=== PATIENT | male | born 1985 | race Caucasian/White ===

== ENCOUNTER 2023-08-16 07:20 | Outpatient (OUT) | payer OTHER, SELFPAY | END 2023-08-16 07:21 | disposition home or self-care (01) | LOC: SLEEP 07:20 | PROVIDERS: PCP Nurse Practitioner Family; Visit Provider Nurse Practitioner Family | DX: G47.30 Sleep apnea, unspecified (principal); G47.33 Obstructive sleep apnea (adult) (pediatric) | CPT/HCPCS: 95810 ==

== ENCOUNTER 2023-09-08 19:53 | Outpatient (OUT) | payer OTHER, SELFPAY ==
--- OUTSIDE RECORDS SUMMARY | 2023-09-08 19:56 | XMS_ITS | CCD ---
Author Name Unknown Address [address] [place] [address] Organization [facility] Care Team Providers Care [employer]yer [employer] Name Role Phone FLORENCE MOON Primary Care Physician [phone] INES RAMIREZ Admitting Unavailable REQUEST, NONE LISTED Primary Care Unavaila FLORENTINO Dominguez Consulting Unavailable BENJAMIN ., INES Attending Unavailable BENJAMIN ., INES Consulting Unavailable REQUEST, NONE LISTED Primary Care Unavaila amilcar Horton, INES Attending Unavailable BENJAMIN Horton, INES Admitting Unavailable GURU DIXON Consulting Unavailable BENJAMIN Horton, INES Consulting Unavailable SHAWNA CALDERON Consulting Unavailable REQUEST, NONE LISTED Primary Care UnavailIRENA Ayala Attending Unavailable MURALI .CHIDI Consulting UnavailIRENA Lucas Admitting Unavailable MARSHA LOPEZ Consulting Unavailable MAYO FLORES Admitting Unavailable MAYO FLORES Attending Unavailable Florence Moon Admitting Unavailab le Florence Moon Attending Unavailab MEÑO Nicolas Admitting Unavailable MEÑO BOWLES Attending Unavailable MAYO FLORES Admitting Unavailable MAYO FLORES Attending Unavailable JUSTINA MASON Admitting Unavail able JUSTINA MASON Attending Unavail able Florence Moon Primary Care Physician [phone] Julián Lay Attending Unavailab Julián [place] Admitting Unavailab Lionel Reinoso Primary Care Unavailable Allergies Allergy Classification Reported Allergen(s) Allergy Type Date of Onset Reaction(s) Facility (1 source) No Known Medication Allergies; Translations: [No Known Medication Allergies] Propensity to adverse reactions (disorder) [facility] Repository Medications Current Medications Medication Drug Class(es) Dates Sig (Normalized) Sig (Original) busPIRone hydrochloride 30 mg oral tablet (5 sources) Start: 01-05-2018 take 1 tablet by mouth twice daily busPIRone 30 mg oral tablet 30 mg = 1 tab(s), Oral, BID, Refills(s) 0 Start Date: 01/05/18 Status: Ordered sertraline 100 mg oral tablet (5 sources) Serotonin Reuptake Inhibitor Start: 01-05-2018 take 1 tablet by mouth once daily sertraline 100 mg oral tablet 100 mg = 1 tab(s), Oral, Daily, Refills(s) 0 Start Date: 01/05/18 Status: Ordered Completed/Discontinued Medications Medication Drug Class(es) Dates Sig (Normalized) Sig (Original) lamoTRIgine 25 mg oral tablet (5 sources) Mood Stabilizer, Anti-epileptic Agent Start: 01-05-2018 take 2 tablets by mouth once daily lamotrigine 25 mg oral tablet 50 mg = 2 tab(s), Oral, Bedtime, take 1 tablet by mouth EVERY NIGHT FOR 14 DAYS THEN 2 TABS EVERY NIGHT Start Date: 01/05/18 Status: Ordered Problems Active Problems Problem Classification Problem Date Documented Da te Episodic/Chronic E Codes: Natural/environment (1 source) Other and unspecified overexertion or strenuous movements or postures, initial encounter; Translations: [OTH AND UNS OVREXRT/STRN MVMT/POS INT] Onset: 10-29-2022 Episodic Menopausal disorders (1 source) Hormone replacement therapy; Translations: [HORMONE REPLACEMENT THERAPY] Onset: 10-29-2022 Episodic Miscellaneous mental health disorders (1 source) Somatization disorder; Translations: [SOMATIZATION DISORDER] Onset: 03-20-2022 Chronic Mood disorders (5 sources) Depression 01-05-2018 Chronic Other aftercare (1 source) Other care home (current) drug therapy; Translations: [OTH PENITENTIARY CURRENT DRUG THERAPY] Onset: 10-29-2022 Episodic Other connective tissue disease (1 source) Other muscle spasm; Translations: [OTHER MUSCLE SPASM] Onset: 10-29-2022 Episodic Pneumonia (except that caused by tuberculosis or sexually transmitted disease) (1 source) Bronchopneumonia, unspecified organism; Translations: [BRONCHOPNEUMONIA UNS ORGANISM] Onset: 10-27-2022 Episodic Sprains and strains (1 source) Strain of muscle, fascia and tendon of lower back, initial encounter; Translations: [STRAIN MUSC FASC TENDON LW BACK INT] Onset: 10-29-2022 Episodic Unclassified (2 sources) LOW BACK PAIN, UNSPECIFIED; Translations: [LOW BACK PAIN, UNSPECIFIED] Onset: 10-29-2022 Unclassified (2 sources) COUGH, UNSPECIFIED; Translations: [COUGH, UNSPECIFIED] Onset: 10-27-2022 Unclassified (1 source) CONTACT W/AND (SUSP) EXPOS COVID-19; Translations: [CONTACT W/AND (SUSP) EXPOS COVID-19] Onset: 10-27-2022 Past or Other Problems Problem Classification Problem Date Documented Da te Episodic/Chronic Residual codes; unclassified (4 sources) Altered mental status, unspecified; Translations: [ALTERED MENTAL STATUS UNSPECIFIED] Onset: 03-18-2022 Episodic Unclassified (5 sources) Assessment for suicidality 01-05-2018 Unclassified (1 source) LOW BACK PAIN, UNSPECIFIED; Translations: [LOW BACK PAIN, UNSPECIFIED] Onset: 10-27-2022 Unclassified (1 source) COUGH, UNSPECIFIED; Translations: [COUGH, UNSPECIFIED] Onset: 10-25-2022 Results Test Name Value Interpretation Reference Range Facility CHEMISTRYOrdered By: SYSTEM SYSTEM on 08-11-2023 Albumin [Mass/Vol] 4.3 g/dL Normal 3.3 - 5.0 gm/dL [facility] Albumin/Globulin [Mass ratio] 2.0 {ratio} Normal 1.1 - 2.2 [facility] Alk Phos 103 [iU]/d High 21 - 98 Int._Unit/L [facility] ALT 56 [iU]/d High 6 - 46 Int._Unit/L [facility] Anion gap [Moles/Vol] 12 mmol/L Normal 6 - 16 mEq/L [facility] AST 31 [iU]/d Normal 5 - 43 Int._Unit/L [facility] Bili Total 0.9 mg/dL Normal 0.0 - 1.1 mg/dL [facility] Calcium [Mass/Vol] 9.3 mg/dL Normal 8.9 - 11. 1 mg/dL [facility] Chloride [Moles/Vol] 103 mmol/L Normal 101 - 1 11 mmol/L [facility] Cholesterol [Mass/Vol] 153 mg/dL Normal 120 - 200 mg/dL [facility] Cholesterol in HDL [Mass/Vol] 44 mg/dL Invalid Interpretation Code [facility] Comment on above: Result Comment: '>= 60 LOW RISK' '<= 40 HIGH RISK' Cholesterol in LDL [Mass/Vol] 78 mg/dL Normal <=129mg/dL [facility] Cholesterol in VLDL [Mass/Vol] 48 mg/dL High 7 - 40 mg/dL [facility] CO2 [Moles/Vol] 29 mmol/L Normal 21 - 31 mmol/L [facility] Creatinine [Mass/Vol] 1.0 mg/dL Normal 0.5 - 1.3 mg/dL [facility] eGFR 100 mL/min/1.73 m2 Normal >=59mL/mi n/1. 73 m2 [facility] Globulin (S) [Mass/Vol] 2.2 g/dL Normal 1.4 - 4.0 gm/dL [facility] Glucose [Mass/Vol] 78 mg/dL Normal 55 - 199 mg/dL [facility] Potassium [Moles/Vol] 4.4 mmol/L Normal 3.5 - 5.3 mmol/L [facility] Protein [Mass/Vol] 6.5 g/dL Normal 6.0 - 7.8 gm/dL [facility] Sodium [Moles/Vol] 140 mmol/L Normal 135 - 145 mmol/L [facility] Triglyceride [Mass/Vol] 240 mg/dL High <=149mg/dL [facility] TSH Qn 3.07 m[IU]/L Normal 0.34 - 5.60 mcIU/mL [facility] Urea nitrogen [Mass/Vol] 12 mg/dL Normal 5 - 21 mg/dL [facility] Urea nitrogen/Creatinine [Mass ratio] 12 mg/mg Normal 10 - 20 [facility] Lipid Panelon 02-01-2023 Cholesterol [Mass/Vol] 149 mg/dL Normal 120-200 [facility] Comment on above: Performed By: #### 1 [id number], [id number] #### [facility] [address] [place] [address] Cholesterol in HDL [Mass/Vol] 40 mg/dL Invalid Interpretation Code [facility] Comment on above: Result Comment: HDL > or equal to 60 mg/dL: Low cardiovascular risk HDL < 40 mg/dL : High cardiovascular risk Performed By: #### 1 [id number], [id number] #### [facility] [address] [place] [address] Cholesterol in LDL [Mass/Vol] 79 mg/dL Normal <=129 [facility] Comment on above: Performed By: #### 1 [id number], [id number] #### [facility] [address] [place] [address] Cholesterol in VLDL [Mass/Vol] 47 mg/dL High 7-40 [facility] Comment on above: Performed By: #### 1 [id number], [id number] #### [facility] [address] [place] [address] Triglyceride [Mass/Vol] 235 mg/dL High <=149 [facility] Comment on above: Performed By: #### 1 [id number], [id number] #### [facility] [address] [place] [address] Physician Orderon 02-01-2023 Physician Order [id number]# [id number]:127 Normal [facility] T4 & TSHon 02-01-2023 T4 [Mass/Vol] 9.1 microgram/dL Normal 4.6-9.1 [facility] Comment on above: Performed By: #### 1 [id number], [id number] #### [facility] [address] [place] [address] TSH Qn 1.73 m[IU]/L Normal 0.34-5.60 [facility] Comment on above: Performed By: #### 1 [id number], [id number] #### [facility] [address] [place] [address] Coding Summary.on 11-07-2022 Coding Summary. CD:[id number] W w+PGhlYWQ+PH7HGZUjS82 fiRYsxK1kL8UGLApAWfwm CPNQCWqBVzEnqjFkIB2xa XNjZXJu IC8+VR9xRAAnUqvftHYxs 6G2tTZ3O49fou0iJHtasB E7GTJjAdIfzwttb7jxiWe 6IDcuNmluOyBt UXHdsF83XCW3zK71Mi47u EFkoYQag9xvyXm4NgIiIQ IcXYH2dIemZUzne3NmEUR xN90sdWQcy5E6 WBTouZxrrCHdGfQqxMZ3i L2fAHcmktowj1fzbwrkQl p5hx03aGOvh0W3vKP5H2A ivfI2BOVecWFj JnpewZKGiW0mpcttd1vob lnbTkUuXABoDVl6PRn8UH PtuTjsOlThCV93HYX6NWB avgBdL0NbVCYo iPilZoC9l5I4Uf7MA3HUF jlnA4DEBCUSFJqoaBX+PC 10ym86M1VrZomlMfe0BFH dSIC2sDO0bC9f WHMmIBdyf9R4hJL1W7Vhq mVafh4ww1rdXRKkSNujM9 2ejALer3W6XZDtzFL0UXT kxVfuRaQmdQ32 Oyc+XCHnuWlcz5UvIjbei 6jcm3rgbWf1LltaDCKbib IwmGxkKLF8t4WiNk1uLDP rxGU4sPT0wS0b NgIhFjV9KTqqD347UdBtv IUpBedjE73zA2YvgQK+PH ZjEsy6XGStuIvfKG2iJ6N hZGRpbmctbGVm aYewNP5vHZSbtrciWIOhp Q1kCQJsK7h1IkStOqA4ZF stQ2FzKVVkeedmWo07fV5 xLcFkRzZ9RZem D3IhesU2TXWvvBApOMjcF IA5K77ww8E7DWVmNKSlWU F5lJJ6pJ6wkIvpbbhlaNO mdDsgdmVydGlj ERmcHSwsV025ZRGqgIruT kNvZGluZyBEYXRlOiAgMD QvMTUvMjAyMzwvdGQ+PHR jZVC5kBfrXLQs dKCoYGemTx3shEvqwJhpY W3jXQAdmjjaXMNmmK9jDU AuhRQubIrpXZ4yEHSvwov ho537BmAnQXZ4 GXCayLLpX6RqyX1zUrMyP NEiOORlV4EqcAKsRXpzP1 38OCxkVaB5FBRumyFuC2A sLWFsaWduOiB0 t5R5Wn5Ke2KwumtrO4Xgx FHnYuZvDyexCUp8E5CxXv wvdHI+MZ85LYPeOM31CFr 7ILM4fVebRBoc DUOsI0UgvE3xFjXdUQEdL GRkOyc+PHRhYmxlIHdpZH RoPScxMDAlJyBzdHlsZT0 eWa9uLICuZBLf rZqdbMYsSfJlr1urIZMdW JmxKA6qmQjcW1UxgAV2KI Fyy2z9Ln18Z48jO6ZrzZC +JIWneUF9aBA1 kH3tNdPaVnZ8TVbdL805W oEpjQAmWpujl9ncu6oreR r9YeM0CLStrfMpsRvyXQB 7z2NhDo45S52s IHdpZHRoPSIxNSUiIHZhb Napwn1fvW2hYi8+PGNvbC P7yHM4fY3yNjYmHbS7VZb tX912KxLdkKGk Ojxhq9lhx3ihmDh2TfQwT BIcfcTzgOvnYWI4u1DfYl 23R2FofQtjq9TbTwd0dj5 4fSYip0E0qIQ1 O2YgMKFdqxlfrQDmxGqkI F1gFBWvpufrXOErzX2eSN WqF9m0PeOkYnX8WCljV4O pujO0EAXdqWZs VCKwlMRTeW0fdykhh7rmj tdvHcMeTTFwPIm5QFy7JR EavHfiVtKdLUW7PbH9ETO 7vQAcaF5agXjf dfwlrM2sCms+LYJ2yAEpw ERTEA2qDwgzrGY+PHRkIH F1xCbzMBfuKBKekB1tBJK pM8c6PyDpXrC0 VVaeT1LsflV9YJNexPGmC HNgqEYKmW1nflhck0fakh ugIbAqVHRpSXv1OFk0TCR saWduOiBsZWZ0 MgO5KKO2uZIukO9tsIasn xlntB0nIog+QmlydGggRG Y9YNf2Q6QdGsh2CJPowJq oQX1tmVEgKCcm Me6aqUxxnDorSH9qHDXtu beem517NrLzh3myIBIdsU LzNBdfVJF2L40au8N3EDL oQGSzOND8hEF2 vC0mfSnrdsxwxPGuiSlie zQfcDmlZHchYRpgP112SZ XabXipIrZwVOz3O7RoTbz 4PLKpiTukPQ3m wYVzHHniHa5msEumjMbjJ R9tPUYxtsqkl113UaEej1 wsLVItuCLkDGyvVPT5U84 zd9L3AWRbREEp SAV7fLX6iE6fdXoamwadl GVmdDsgdmVydGljYWwtYW ebN156OMMmeBjmYzUbkMr 5N5KwVun8RQYs uZuyJX9wgVAoWNnoOa3gr XbkyXayUY3mODDhhiwqh5 47YhMad6mdTFQmhPZrLPv iQYZ3L77nq8B5 KESxADEuBMV4fLU4bB1pk GlnbjogbGVmdDsgdmVydG ulSYwcNMjzK321TOZnlKl nPlBhdGllbnQg SPgxDCe7Y8HqTvribNN+P E93KQPtIQ21ePVqbZSwa2 pwjAc5XtJlUOAbNDT4fZj uAAtbw3WoQUKf A85mmNDfb4W9DZLvfLgij JNpCyEsnOB4vX0pTGwrxp jqa9netltcXtfag9czlz9 7aI56V44iCNki ZHRoPSIzMCUiIHZhbGlnb c2eqY3uAg6+RFScwFR4sB K1lW9fQYTyYoB8PMhzC24 9InRvcCIvPjxj c7sqa6bghZk9GnH9VRXag vIumGivQVZ5s9UeMk95L5 9sIHdpZHRoPSIyMCUiIHZ ntYofjv6nfD6l Ii8+ZNSnoJF8rFM4bM5uH lVqKzP7STmqC966VxKrsA DzWxjsP78jT9FycHC+PHR eTxw7QYHhdRfu DX4gtGSyILfcMi8pWGW3P pLjUyVxUVtnF2KsGEOoru njdhkriZX4XVVtUBKhsN0 5Hn4vkIwvJGIf jDGDlZ6ewqeiw5znyvokS jQqXBVpJDe6IVo8NBQrwA sxVqSfKLM1CuU2UPA3oRC sgR5viKfznrlr uZ4yL8DoCGOqbljgVn28w B8aWuWyBkQ8YAuxTjt+Qk pVC1qOVJOeDPTDEKPOGRS 6H8WzClb2YJMu bKrwET2dqIEqPIrkHe1fb HnirYycOP5eSLHgklcpCU KllB8eOSCywTLiwZepPT7 hFHQfgycpb709 FkQrZXO4TCPxaSErF9Tay L8oBvRmGUJrDVUxH3JasQ HpRNbvX121CKvaPpW6RHR lbqApZ2QbXMYv xYmsUfH2z7C8Vx8uEh8jF Q8uEHe3CL00DB25iRVcg5 K8cDV5X6YwWBJvpqgokdh yiIH4PSMzSEWk qQ04rPIyBZpyYw8hu3E2y 776AVMbYYTlaH10Lc0igH zqRENhdXDOaS5qitxec6g vcjogIzAwMDAw KAc1UAc0FSXkpVprEfJxZ FH7PjO6SZE8lTZccK1rfY klwadgqD1cMrm+MzQgWWV eeaS9N0SfUry5 BLGhkIuhVY7uvRXwDArpH e0dvPqvaRhwSH7fXMPiyp chBOJxyL1uXBEonQWwvPv iBH6cOCRvfpvy b795RsOoKZL5AZZlbXMkT 3ZnyI1oYjNgCYQeYQFuT5 GtaAMdXWjvV799QOmyWgR 4CZTpfbHlA5Bb UVFqeIueDdO8e4A7Eu4NU AacWD78SN40gMUoa3H1lJ J4H7JbZSDsiichcmqhlNS 6QXBlOGYjgH80 mOEdZAtnRh0al3X4y733A KQwSZWomG81Mq9qdCrrGY OnlJQTmL1ibmuud4ozagw gIzAwMDAwMDt0 QJn6BBIwnMlqFeXiMLY4Z zJ2GAC9kKNboK6udVwtko fphQ5sJes+PZItJWFxb6O sf1EgFJ34GK06 A4JvXfubgBPevQC+PHRhY mxlIHdpZHRoPScxMDAlJy EenHtcPP7hIp5zMEWtYVJ vbGxhcHNlOiBj d4ciUVVjVJotKI2ctNulQ 7BpjWU5KGKhx7j6Di46Y2 8gX5ViwBX+CJFmwNA1gAM 3xF2tLdPqDzZ9 WBojR726TsIyfANsIgmoc 6uck3ckpIa8JrCxMNYmcr CcfKljIGX7l5HjNs58I74 sIHdpZHRoPSIy IVQlZEOxtEhyek5flS2lL i8+SEHmlVO9gOD3tK1cVy NmUhH7HIwqW103OnIofNK rTfnvJ18bO3Sk dXA+SUBgSsu4XQUmoAivJ N8ehGBjVAtgDl3zMDT5Qp MaCgRaSWumV1NsGWBdvlh mtcdzmPK8MXHj GFXooN63Je6snZenMu5dX KWaVJI5ESJzpATpI4SkvC 5kHkQaISPbCGNoI0GzdBW tKAppA653LTnl GuF2BTPywzWvI0KaUWSnw SduTlL2f8C4Ss3DqLhyfV CeYY3pNcDsNIf1W8NqZxh 9BATlvKccVE5l bOHsRQenRv4xdRvbrUjvX K3tHSCzrqlcq053QcQrb3 nrQKRuwJNdKYbdSWU4D51 su3N0COXdTOXi WUR3bAD6aH1waYeybwobw GVmdDsgdmVydGljYWwtYW kmD230EJYkzYirZePIWmg 7P8LcWku5UTHj nTwgIK6udHJlBZqbSf7tz PdbaRnlVX8hVEAazyzzj5 56ShIpt3xsGJLyuEKqCFp gMHR1L54uy0U0 JXOoUONmHOG5qGO1qQ2gy GlnbjogbGVmdDsgdmVydG ruWSquPMolA450JGMudDw wKb2KGgs6V3Dl Xmn4BSKtcQqrAR8wxMLgP TugPf9kdUmweAmgUZ1zIB Bpoqdee297JgQro4lqRAO wcHQgVGltZXM7 I06iw0T0JSGuKGAuTTW7g CS2sY0usTkmajzhjTZisB uhhhMvoWswJKzqDFqzK29 6IHRvcDsnPlBh eWVyOjwvdGQ+FD07to08O 3YcIzgrArq4JLGbFIX9fR V3rM3lZTTzOVwoc8H5nRV 9R6IhqtBulo5b u5ixJVPr (more content not included)... Normal [facility] Physician Orderon 11-03-2022 Physician Order [id number]# [id number]:127 Normal [facility] Thyroid IIon 11-03-2022 Free T4 index Calc [Mass/Vol] 9.67 ng/dL Normal 5.90-13.10 [facility] Comment on above: Performed By: #### 1 [id number] #### [facility] [address] [place] [address] T4 [Mass/Vol] 9.1 microgram/dL Normal 4.6-9.1 [facility] Comment on above: Performed By: #### 1 [id number] #### [facility] [address] [place] [address] T4 uptake [Mass/Vol] 42.5 % Normal 32.0-48.4 [facility] Comment on above: Performed By: #### 1 [id number] #### [facility] [address] [place] [address] TSH Qn 2.38 m[IU]/L Normal 0.34-5.60 [facility] Comment on above: Performed By: #### 1 [id number] #### [facility] [address] [place] [address] XR LSPINE 2_3 VIEWSon 2022 XR LSPINE 2_3 VIEWS EXAM: XR LSPINE 2_3 VIEWS HISTORY: Low back pain COMPARISON: None. TECHNIQUE: 2 views FINDINGS: Maintenance of the normal lumbar lordosis.. Vertebral body heights and alignments exhibit no fracture or listhesis. Intervertebral disc space heights are unremarkable IMPRESSION: Normal lumbar spine x-rays Electronically authenticated by: MARSHA LOPEZ Date: 2022-10-27 21:22 Normal [facility] CBC AUTO DIFFon 10-25-2022 BASO # 0.0 103/ul Normal 0.0-0.1 [facility] Comment on above: Performed By: #### C BC ####[facility] [address] [place] [id number]. Elena Guido Basophils/100 WBC (Bld) 0.2 % Normal 0.2-2.0 [facility] Comment on above: Performed By: #### C BC ####[facility] [address] [place] [id number]. Elena Guido EO # 0.2 103/ul Normal 0.0-0.7 [facility] Comment on above: Performed By: #### C BC ####[facility] [address] [place], [place] [id number]. Elena Guido Eosinophils/100 WBC (Bld) 3.9 % Normal 0.9-7.0 [facility] Comment on above: Performed By: #### C BC ####[facility] [address] [place], [place] [address]Dr. Elena Guido Erythrocyte distribution width (RBC) [Ratio] 12.9 % Normal 11.0-15.0 [facility] Comment on above: Performed By: #### C BC ####[facility] [address] [place], [place] [address]Dr. Elena Guido Hematocrit (Bld) [Volume fraction] 42.7 % Normal 42.0-54.0 [facility] Comment on above: Performed By: #### C BC ####[facility] [address] [place] [id number]. Elena Guido Hemoglobin (Bld) [Mass/Vol] 14.7 g/dL Normal 14.0-18.0 [facility] Comment on above: Performed By: #### C BC ####[facility] [address] [place], [place] [id number]. Elena Guido IG # 0.01 10e3/ul Normal 0.00-0.03 [facility] Comment on above: Performed By: #### C BC ####[facility] [address] [place], [place] [id number]. Elena Guido IG % 0.2 % Normal 0.0-0.5 [facility] Comment on above: Performed By: #### C BC ####[facility] [address] [place] [id number]. Elena Guido LYMPH # 1.2 103/ul Normal 1.2-3.8 The [facility] Comment on above: Performed By: #### C BC ####[facility] [address] [place], [place] [address]Md. Elena Guiod Lymphocytes/100 WBC (Bld) 25.9 % Normal 20.5-60.0 [facility] Comment on above: Performed By: #### C BC ####[facility] [address] [place] [id number]. Elena Guido MANUAL DIFF REQ NO Normal [facility] Comment on above: Performed By: #### C BC ####[facility] [address] [place] [id number]. Elena Hay MCH (RBC) [Entitic mass] 28.9 pg Normal 25.9-34.0 The [facility] Comment on above: Performed By: #### C BC ####[facility] [address] [place] [id number]. Elena Guido MCHC (RBC) [Mass/Vol] 34.4 g/dL Normal 29.9-35.2 The [facility] Comment on above: Performed By: #### C BC ####[facility] [address] [place] [id number]. Elena Hay MCV (RBC) [Entitic vol] 84.1 fL Normal 80.0-94.0 The [facility] Comment on above: Performed By: #### C BC ####[facility] [address] [place] [id number]. Elena Guido MONO # 0.6 103/ul Normal 0.3-0.8 The [facility] Comment on above: Performed By: #### C BC ####[facility] [address] [place] [id number]. Elena Hay Monocytes/100 WBC (Bld) 12.7 % Critically high 1.7-12.0 [facility] Comment on above: Performed By: #### C BC ####[facility] [address] [place] [id number]. Elena Guido NEUT # 2.6 103/ul Normal 1.4-6.5 The [facility] Comment on above: Performed By: #### C BC ####[facility] [address] [place] [id number]. Elena Guido Neutrophils/100 WBC (Bld) 57.1 % Normal 43.0-75.0 The [facility] Comment on above: Performed By: #### C BC ####[facility] [address] [place] [id number]. Elena Guido Platelet mean volume (Bld) [Entitic vol] 8.9 fL Critically low 9.5-13.5 [facility] Comment on above: Performed By: #### C BC ####[facility] [address] [place] [id number]. Elena Guido PLT 167 103/ul Normal 150-450 The [facility] Comment on above: Performed By: #### C BC ####[facility] [address] [place] [id number]. Elena Guido RBC 5.08 106/ul Normal 4.70-6.10 [facility] Comment on above: Performed By: #### C BC ####[facility] [address] [place] [id number]. Elena Guido WBC 4.6 103/ul Normal 4.0-11.0 The [facility] Comment on above: Performed By: #### C BC ####[facility] [address] [place] [id number]. Elena Guido CULTURE BLOODon 10-25-2022 Microscopic examination of blood, culture Culture Observations: NO GROWTH AT 5 DAYS. Normal The [facility] Comment on above: Performed By: #### B LDCX2 ####[facility] [address] [place] [id number]. Elena Guido Microscopic examination of blood, culture Culture Observations: NO GROWTH AT 5 DAYS. Normal The [facility] Comment on above: Performed By: #### B LDCX1 ####[facility] [address] [place] [id number]. Elena Guido ER URINE PROFILEon 3 Bilirubin Ql (U) Negative Normal NEGATIVE [facility] Comment on above: Performed By: #### E RUR ####[facility] [address] [place], [place] [address]Dr. Elena Guido Clarity (U) CLEAR Normal CLEAR [facility] Comment on above: Performed By: #### E RUR ####[facility] [address] [place], [place] [address]Dr. Elena Guido Color (U) YELLOW Normal YELLOW [facility] Comment on above: Performed By: #### E RUR ####[facility] [address] [place], [place] [address]Dr. Elena Hay ERUAHD A micrscopic examination will be performed if indicated. Normal The [facility] Comment on above: Performed By: #### E RUR ####[facility] [address] [place], [place] [address]Dr. Elena Guido Glucose Ql (U) Negative Normal NEGATIVE The [facility] Comment on above: Performed By: #### E RUR ####[facility] [address] [place], [place] [address]Dr. Elena Guido Hemoglobin Ql (U) Negative Normal NEGATIVE The [facility] Comment on above: Performed By: #### E RUR ####[facility] [address] [place], [place] [address]Dr. Elena Guido Ketones Ql (U) Negative Normal NEGATIVE The [facility] Comment on above: Performed By: #### E RUR ####[facility] [address] [place], [place] [address]Dr. Caitlinlan Guido LEUKOCYTES Negative Normal NEGATIVE The [facility] Comment on above: Performed By: #### E RUR ####[facility] [address] [place], [place] [address]Dr. Yilan Guido Nitrite Ql (U) Negative Normal NEGATIVE [facility] Comment on above: Performed By: #### E RUR ####[facility] [address] [place] [address]Dr. Elena Guido pH (U) 5.5 [pH] Normal 5-9 [facility] Comment on above: Performed By: #### E RUR ####[facility] [address] [place] [address]DrClifford Guido SPEC GRAVITY 1.025 Normal 1.005-<=1.025 The [facility] Comment on above: Performed By: #### E RUR ####[facility] [address] [place], [place] [address]Dr. Elena Guido UA PROTEIN Negative Normal NEGATIVE/ TRACE [facility] Comment on above: Performed By: #### E RUR ####[facility] [address] [place], [place] [address]Dr. Elena Guido UR MICRO IND NOT INDICATED Normal [facility] Comment on above: Performed By: #### E RUR ####[facility] [address] [place], [place] [address]Dr. Elena Guido Urobilinogen Qn (U) 0.2 {Morgan'U}/dL Normal 0.2 - 1. 0 [facility] Comment on above: Performed By: #### E RUR ####[facility] [address] [place], [place] [address]DrClifford Guido LACTATE/LACTIC ACIDon 2022 Lactate [Moles/Vol] 1.0 mmol/L Normal 0.4-2.0 [facility] Comment on above: Performed By: #### L ACT #### [facility] [address] [address] [address] Elena Guido PROF 14(COMP METB)on 023 Albumin [Mass/Vol] 3.8 g/dL Normal 3.4-5.0 [facility] Comment on above: Performed By: #### C MP ####[facility] [address] [address]DrClifford Guido Albumin/Globulin [Mass ratio] 1.2 {ratio} Normal [facility] Comment on above: Performed By: #### C MP ####[facility] [address] [place] [id number]. Elena Guido ALP [Catalytic activity/Vol] 126 U/L Critically high 46-116 The [facility] Comment on above: Performed By: #### C MP ####[facility] [facility] [id number] [place] [id number]. Elena Guido ALT [Catalytic activity/Vol] 51 U/L Normal 16-63 The [facility] Comment on above: Performed By: #### C MP ####[facility] [address] [place] [address]Dr. Elena Guido Anion gap [Moles/Vol] 11.4 mmol/L Normal Th e [facility] Comment on above: Performed By: #### C MP ####[facility] [address] [place] [address]Dr. Elena Guido AST [Catalytic activity/Vol] 28 U/L Normal 15-37 [facility] Comment on above: Performed By: #### C MP ####[facility] [address] [place] [address]Dr. Elena Guido Bilirubin [Mass/Vol] 0.9 mg/dL Normal 0.2-1.0 The [facility] Comment on above: Performed By: #### C MP ####[facility] [address] [place] [address]Dr. Elena Guido Calcium [Mass/Vol] 8.9 mg/dL Normal 8.5-10.1 [facility] Comment on above: Performed By: #### C MP ####[facility] [address]qz[address] [place] [address]Dr. Elena Guido Chloride [Moles/Vol] 101 mmol/L Normal 98-107 [facility] Comment on above: Performed By: #### C MP ####[facility] [address]ls[address] [place] [address]Dr. Elena Guido CO2 [Moles/Vol] 30.5 mmol/L Normal 21.0-32.0 [facility] Comment on above: Performed By: #### C MP ####[facility] [address] [place] [address]Dr. Elena Hay Creatinine [Mass/Vol] 1.20 mg/dL Normal 0.70-1.30 [facility] Comment on above: Performed By: #### C MP ####[facility] [address] [place] [address]Dr. Caitlintheresa Hay EGFR-AF [place]ORE[place] >60 Normal >=60 [facility] Comment on above: Performed By: #### C MP ####[facility] [address] [place] [address]Dr. Elena Guido EGFR-NON AF [place] >60 Normal >=60 [facility] Comment on above: Performed By: #### C MP ####[facility] [address] [place], [place] [address]Dr. Elena Guido Globulin (S) [Mass/Vol] 3.3 g/dL Normal [facility] Comment on above: Performed By: #### C MP ####[facility] [address] [place], [place] [address]Dr. Elena Guido Glucose [Mass/Vol] 118 mg/dL Critically high 74-106 [facility] Comment on above: Performed By: #### C MP ####[facility] [address]ip[address]ikw[address] [place], [place] [address]Dr. Elena Guido Potassium [Moles/Vol] 3.9 mmol/L Normal 3.5-5.1 The [facility] Comment on above: Performed By: #### C MP ####[facility] [address]ou[address] [place], [place] [address]Dr. Elena Guido Protein [Mass/Vol] 7.1 g/dL Normal 6.4-8.2 The [facility] Comment on above: Performed By: #### C MP ####[facility] [address]fp[address] [place], [place] [address]Dr. Elean Guido Sodium [Moles/Vol] 139 mmol/L Normal 136-145 [facility] Comment on above: Performed By: #### C MP ####[facility] W[address]byjz[address] [place], [place] [address]Dr. Elena Guido Urea nitrogen [Mass/Vol] 18.0 mg/dL Normal 7.0-18.0 The [facility] Comment on above: Performed By: #### C MP ####[facility] Nguy[address]iyvw[address] [place], [place] [address]Dr. Elena Guido Urea nitrogen/Creatinine [Mass ratio] 15.0 mg/mg Normal The [facility] Comment on above: Performed By: #### C MP ####[facility] [address] [place], [place] [address]Dr. Elena Guido RESPIRATORY PANEL PLUSon Adenovirus Not detected Normal NOT DETECTED The [facility] Comment on above: Performed By: #### R SPLUS ####[facility] [address]biigy[address] [place], [place] [address]Dr. Elena Guido B. Parapertusis Not detected Normal NOT DETECTED The [facility] Comment on above: Performed By: #### R SPLUS ####[facility] Sdsdzixzes[address] [place], [place] [address]Dr. Elena Guido B. Pertussis Not detected Normal NOT DETECTED The [facility] Comment on above: Performed By: #### R SPLUS ####[facility] [address]qs[address] [place], [place] [address]Dr. Elena Guido Chlamydia Pneumoniae Not detected Normal NOT DETECTED The [facility] Comment on above: Performed By: #### R SPLUS ####[facility] [address]azwh[address] [place], [place] [address]Dr. Elena Guido Coronavirus 229E Not detected Normal NOT DETECTED The [facility] Comment on above: Performed By: #### R SPLUS ####[facility] Sifybsdnan[address] [place], [place] [address]Dr. Elena Guido Coronavirus HKU1 Not detected Normal NOT DETECTED The [facility] Comment on above: Performed By: #### R SPLUS ####[facility] [address]iv[address] [place], [place] [address]Dr. Elena Guido Coronavirus NL63 Not detected Normal NOT DETECTED The [facility] Comment on above: Performed By: #### R SPLUS ####[facility] [address]dtz[address] [place], [place] [address]Dr. Elena Guido Coronavirus OC43 Not detected Normal NOT DETECTED The [facility] Comment on above: Performed By: #### R SPLUS ####[facility] Auuiyriydx[address] [place], [place] [address]Dr. Elena Guido Influenza A H1 Not detected Normal NOT DETECTED The [facility] Comment on above: Performed By: #### R SPLUS ####[facility] [address]fxz[address] [place], [place] [address]Dr. Elena Guido Influenza A H1 2009 Not detected Normal NOT DETECTED [facility] Comment on above: Performed By: #### R SPLUS ####[facility] Ntfietrhzy[address] [place], [place] [address]Dr. Elena Guido Influenza A H3 Not detected Normal NOT DETECTED The [facility] Comment on above: Performed By: #### R SPLUS ####[facility] [address]fwmvedp[address] [place], [place] [address]Dr. Elena Guido Influenza B Not detected Normal NOT DETECTED The [facility] Comment on above: Performed By: #### R SPLUS ####[facility] [address]otv[address] [place], [place] [address]Dr. Elena Guido Metapneumovirus Detected Abnormal NOT DETECTED The [facility] Comment on above: Performed By: #### R SPLUS ####[facility] [address]peffvl[address] [place], [place] [address]Dr. Elena Guido Mycoplas. Pneumoniae Not detected Normal NOT DETECTED The [facility] Comment on above: Performed By: #### R SPLUS ####[facility] Qsichmlqwf[address] [place], [place] [address]Dr. Elena Guido Parainfluenza 1 Not detected Normal NOT DETECTED The [facility] Comment on above: Performed By: #### R SPLUS ####[facility] [address]usqsdq[address] [place], [place] [address]Dr. Elena Guido Parainfluenza 2 Not detected Normal NOT DETECTED The [facility] Comment on above: Performed By: #### R SPLUS ####[facility] Qenglonunj[address] [place], [place] [address]Dr. Elena Guido Parainfluenza 3 Not detected Normal NOT DETECTED The [facility] Comment on above: Performed By: #### R SPLUS ####[facility] Sixdpjfclx[address] [place], [place] [address]Dr. Elena Guido Parainfluenza 4 Not detected Normal NOT DETECTED The [facility] Comment on above: Performed By: #### R SPLUS ####[facility] [address]tp[address]ni[address] [place], [place] [address]Dr. Caitlintheresa Guido Rhino/Enterovirus Not detected Normal NOT DETECTED The [facility] Comment on above: Performed By: #### R SPLUS ####[facility] [address]cehw[address] [place], [place] [address]Dr. Elena Guido RP2 Header 1 RESPIRATORY PANEL: VIRUSES Normal The [facility] Comment on above: Performed By: #### R SPLUS ####[facility] [address] [place], [place] [address]Dr. Elena Guido RP2 Header 2 RESPIRATORY PANEL: BACTERIA Normal The [facility] Comment on above: Performed By: #### R SPLUS ####[facility] [address] [place], [place] [address]Dr. Caitlintheresa Guido RSV Not detected Normal NOT DETECTED The [facility] Comment on above: Performed By: #### R SPLUS ####[facility] V[address]woq[address] [place], [place] [address]Dr. Caitlintheresa Guido SARS-CoV-2 (COVID-19) RNA GALI+probe Ql (Unsp spec) Not detected Normal NOT DETECTED The [facility] Comment on above: Performed By: #### R SPLUS ####[facility] Q[address]xshw[address] [place], [place] [address]Dr. Elena Guido XR CHEST 1 Von 10-25-2022 XR CHEST 1 V EXAM: XR CHEST 1 V COMPARISON: 03/18/2022 CLINICAL INDICATION: Cough. FINDINGS: Expiratory chest with low lung volumes and crowding of the bronchovascular markings versus peribronchial thickening again seen. Cardiomediastinal silhouette within normal limits. No focal consolidation. No pleural effusion. No pneumothorax. IMPRESSION: No evidence of acute cardiopulmonary abnormality or significant interval change. Expiratory chest with low lung volumes and crowding of the bronchovascular markings versus peribronchial thickening again seen. No focal consolidation. Electronically authenticated by: FLORENTINO FALL Date: 2022-10-25 20:27 Normal The [facility] Coding Summary.on 08-07-2022 Coding Summary. [id number] G h0bWw+PGhlYWQ+UJ9IMLD wE25wzQQhxG9IC5zQKX7U MFLMARUYSS9CIV9inAG9S IvxF7QhliEr UimelOAlFE30SDu3YRR3n ZstPTcceE3dySRtI9c6Fz QkMS04yC80CDpxJEDcAnI 3LjZpbjsgbWFy O1spEmJglHZnMqz+PHRhY mxlIHdpZHRoPScxMDAlJy EjxFwcVE9aVk7qYLZvAPS vbGxhcHNlOiBj z7igYWRlPBjjQV1lzNdpP 4LyzVH3PNOhm6q1Jc19xC I+OQZnJQX3kZszTUbir06 2IcCof6xzLIV7 qEDrKPulOVU0H15qk4P3C ZVfIVAeNCO3sTD9tT9hmZ xizjkqN0HpeWUjTwG9GNQ 0aFLcpZ4uhAit fbxtjT7lEgl+A95SWW1BG BOTPM3AGrp7X8NvJmhtwJ I+XV66DGUuUS68mXGklFF al1xbyBq9CeIl RXNiYCI7fAjjQKvlw6AiP NPgP78ebTZgx6V9UGJltW lkzMHsDfEphAA9jM7bDPu xmavfy8twtpvf Omzdf8okhd14pL32T08xF AxbEBUaGWN9HZZjQJLxaL ixra4isK3kIi1+UCoeh9u bs0wgeWb3EuKy KXVjztNmoVyhNDJ3g6IiE i01G8GgtYgsj4AtLww4be 04bGAaj6X5xPG2KXvgIYJ vdW7qFQcvVoV3 KFRlAdZabD93mRTwTLlxP y9rfUzvjOhzCI8dEGXlaw ocUVAwlA5wQLBhsBQhmBm iVY1hSPZvdtjz b546VpHiDNQ6VHRhxDWcU 4DrqD8wMgMeBBWdSVRgT7 RkuDBjPXpzN074HNnpSuY 1GEYcncZtX5Im AXFosCqtNpB3b4B2Cp1Oq 7OjswfcWYQ7AAkdDVIlUp XnDwJwEiI4Q5JjBpq9XHJ hxVlzUT9pT9Oi VCUqiqlecxnxgIO8ACUbO BLxsK02nISaKOmzGa6sl7 I7f922XRFjLAKwqF36Mi4 udDogMTBwdCBU bG6xodsiv1urpdwlCbZfD AOeTRb2HVb5ZFHivEuuFl LaJES8PsW1TWM4qICwxP6 lqPcihmdzjP0j Oyc+E78vuD1sKFY3WEF5d jahMVUinnWhST60KC60F6 RyPjwvdGFibGU+PGRpdiB ikBahNS5wEsBe w0wcr5HjXGulY3QjDEDwB RotGuf2KSJdSBD5vYI2nF 1sIHHvWLzla5O6jPK0T6D hukRuln2xx1nj AIBvMBkrS36ckYYow5J9W ZGlrMJ9XCUbdNarWlIxmG 93Oyc+RMZgdWejn9XlOgo ax4gic2dhkTo0 RhCrGQSsllWlfZqgRPR0e 0MgYh28B58lTRgsIUTqKV ScQBRgXRIsrJdbbx8iiS4 wIi8+PGNvbCB3 cCG4tV2oGPWaDwR3AHkjG 948YnVmnBUtOoaxl4vhn7 zhmAq2CjVgIHCntsAcmIp qFTK1d4VdRy17 F23uJXpeWLYhAMYaNRDoC YWmfXvjro7pqK8nPs6+PC 7ns9nzmj18jE53iAI+PHR xQQQ6eJbuPUwr VGRjvA2iTNtoSbD8IVSmD tGfrK75bMWfXRadYe0qnB xsmKlkJA6oLPDympvkj75 5UoRau3cnRDEa hWWqVTbtTTY1R09go2U7H TTtPLDpPSO4qIK4sI4hnZ lnbjogbGVmdDsgdmVydGl dPLhoLPgpM062 IHRvcDsnPlBhdGllbnQgT uEeSBc4V6FkWaw0YJVeqU muTQ8vbJCnPXthCs1xhEt eiTyyXO2zEPKa wbrfo965WyNfc6dvLEKdq UDwRRqgGXS7W48ux5T7YE JnLGUiVBG7vUC3xJ4mnFq nbjogbGVmdDsg jvSgsCnbAVmaHBxaN669Q HRvcDsnPkJpcnRoIERhdG D9VE33LS06aPCgb6O4kKH 4T5BwZGAyjbqh obtblRS0BZQdISKzaN55W v1hbFscEo3pGNHkVVZ7HI NdfCMeR2JsfA1bRzOrQDN aHCWxA1DjdRTj DIbyV562TIpfBnT5WPFtr vLxQ7ToJQLpjKmxAkD7n5 R9Rd4QT4B9TG59XZ94lBE sw0R5vCX0F6Gq ANLvtvhnrembwIT6GZCtW OEufO81Dq5enDysBb1kOD JpITA3VTMppMUxJ5ZbhU3 yOiAjMDAwMDAw G2VxnJXaGOieC126VOfoJ sF8UWWxluMeT2OjBSSdcL lwWwS5q2F8Tr1VABv9FD9 9EN33oLWot4F1 pYE0O1GiWMAbcbfuuuhvx MB7JQLkBJWibQ29Js0xnG fcMx6eZAPdPEJ8WXBgbVM nK0JyyM8rMqSm JPYzVLFoH2AbkGVhOEzgE 318OXjgOmC0QAXxcdLkH0 LjSUDpiRkxMwA2n7S5Mw3 DAYNjLC02LTD1 kIB8DU77HZ84V8VbWhawc GFibGU+PHRhYmxlIHdpZH RoPScxMDAlJyBzdHlsZT0 uNv6nOKHkFPNh fPbmqWZpXsJfn6bwWHDgX QasWD9acSxmT6EbqBJ2EN Kna6y1Bc65U56zH8KcnCH +GCMdcOS1lFK5 eG8wZcCaHbV8PXvxH708C pBhxCVtTvgxm1fvc5wisD x9JfE4GETthcVhdXphUCR 8l6NoKw14M21g IHdpZHRoPSIxNSUiIHZhb Cblst4hiA4fOi2+PGNvbC Z3kCY7dT9wFhImMuA6WFk iV225MnAhwCPz Vcpqf1oto3xitFx6CeRsJ AGeptWorUklDVN5j9EnVq 08M2LuvCgsg2QuBbn2qc1 7wWXby0R7rDC4 B6BnQNWfkeoeeZQtmZscR E8bIKQkvufdBUMgzP7bUI AyW4h1NbTfBoS5EGrqG6U lcuX8NOCbgHEh HZufFXN2D78vh8E9EMIzS MLqMMP7sXQ4oR8siRlqgz ogbGVmdDsgdmVydGljYWw bQRqkI362UJZa xIslTIYebR5pZUTmcHDjv KwuNX1pHEClgvmfNuSCWw gLP4oRAumnNHJONYDYWC7 1HQ66xWAkv6W2 dQH3Q7XlRHZsshucmfyuu LA3EWYaOFRgrA80oDIaLB xtIe1qu0D3r618JMSvUQZ duG22Vi8evEfn EVIxrFDKbE6kgmbii6vdu nlfLiFtFWMnMRn0NEh6LN EcuBqgEdUjMTD9OcZ5CQF 2zLCslQ2muUtw tczgbE7oEkw+MDYvMDUvM Nb9RRdchCE+WXMvTSB3eM wbEOxpCTMklF9eGKLoV0j 2CeDfYdX9MLoh O4HrOLLvaowbEj03wY9uB aYqReQ4FCpqV2ZwaqC5FI CtuGYuZCboMPR0P77hn3T 7NQZhYBQsRAJ8 rOX4fI1qxSfncjpajURmw DsgdmVydGljYWwtYWxpZ2 26RWCwvSnvBqI4AYjqBSZ cPU03GE83lAXd a8E6vGC8P2WaJWQbnvpud djbrNE0AQSfFFXzxA16kS EgVRtqFk5cr0B0u429UNK zCBDbzL79Az3h nGiuMOEswBGGsN3inpifh 2jnofmjZxErXKUeJGq9OJ m4GVRztShoKqJkGOM4JvS 3SSD5oTLldJ1c kTaejatexO5zZmc+TWFsZ TwvdGQ+DZLjGHX2kGvyJS jlOCGrpC9lPIAiU8l5XpB aCdE2JYnyW3Vs VPZxhpcsCr99qA7yWnWeN sB9HEolB6GtjoP9AQDvvQ UyTEioLMW1Z82za7J7YXJ xSRHcXOP4vQZ2 yV8xxVbiuzjdvVPyyFbrb mOkjNdfQLxrDDrlF548QR IphQhsKxmvOrUErr9rHO0 mZjwvdGQ+PC90 yp84J3JlXhnyQjq3JMLrQ LC8qBK0gZ3dVUEuKFepg9 C6qAH4F0UugpZcdz1dh0c kZIWqWMuoH98p wWOou6X6FAPuaGA7NCGfr WldYzXhbF66Lqi+PGNvbG sls0MiPodnx9psc7jsqLa 9IjMwJSIgdmFs yBjdNEC1j6SwSb53L19bH HdpZHRoPSIzMCUiIHZhbG vzzy6ntV9nJy5+PGNvbCB 8tGL3aM8kPoQd TtJ0VEicR765OkFojLSlH tesu0qfr7iueWa7DtLzNR JgjuIanKbgEGE6t1KnOd3 1H9EzyMxvf2Co Yyy8ck74eXTbf4E8aYL6M 3BhZGRpbmctbGVmdDogMC 3tZACdqbwoHXWbuZ8yANC uW9j5FgExZrL9 QBgyT6TvmqJ2DKIkhDSoX EIsxLMNcR7hqyazp9illr ohRiYvLUIwYUv2KTm3HKK saWduOiBsZWZ0 EsZ1EPA4eHUcjK4lmJlxl qivoS9nDjw+SVs4w9xwaG VvDL4adPR7NN09OB27bLA wz9G4zLD5Z0Hb AIHfucajwinxdDA6AQBjA JAsbN64My2baThbAn3dAP TvNMN1IFFpcZUyQ9CuoU3 yOiAjMDAwMDAw W1GdwIEzLSwcG659NPzdJ rU7MOCtspJwK7GnYRLysO jaYwZ3c4J6Sq0BIG40MU5 2NG21qJRhm6R9 bYF9R2GqOCOyjidvjvboe KR8GPNxICVleJ25En4lkK kpSr6nWMAoUKG1GXAuoNT vT9OdtK5pUtHq YZWmYWAiK2KsoEDhBOyzV 598ZQueHgR4INItfdCxS2 IfHTDsoPwdRcS4c1Y3Hg5 UNd76VL59CN85 jRZhk1T8gPP6E2HzHLDua yfwvlaxzGC7DENlYYVdeB 19Ob1sqKtdIh7bJFHwSGC 9CLXloKAjV9Dz iB0jKaOgXBHoBLHmB6Sty OZqXGfhI704NRmeIzR2ZW KzccFfQ1AcMNQoxHadHtH 3y7Z6Pa2AENnf xiq9L0GaEmxybDK+PC90Y TXiZT09nHLzuKTtu6nhuI m1JbXqVGUwJCV3wEbsGUf xq7KoCQQvQ96o bGFw (more content not included)... Normal [facility] Lipid Panelon 08-05-2022 Cholesterol [Mass/Vol] 176 mg/dL Normal 120-200 [facility] Comment on above: Performed By: #### 1 [id number] #### [facility] [address] [place] [address] Cholesterol in HDL [Mass/Vol] 50 mg/dL Invalid Interpretation Code [facility] Comment on above: Result Comment: HDL > or equal to 60 mg/dL: Low cardiovascular risk HDL < 40 mg/dL : High cardiovascular risk Performed By: #### 1 [id number], [id number] #### [facility] [address] [place] [address] Cholesterol in LDL [Mass/Vol] 103 mg/dL Normal <=129 [facility] Comment on above: Performed By: #### 1 [id number], [id number] #### [facility] [address] [place] [address] Cholesterol in VLDL [Mass/Vol] 33 mg/dL Normal 7-40 [facility] Comment on above: Performed By: #### 1 [id number], [id number] #### [facility] [address] [place] [address] Triglyceride [Mass/Vol] 166 mg/dL High <=149 [facility] Comment on above: Performed By: #### 1 [id number], [id number] #### [facility] [address] [place] [address] Physician Orderon 08-05-2022 Physician Order [id number]# 1.00CD:127 Normal [facility] TSH With T4fr Reflexon 08-05 TSH Qn 2.32 m[IU]/L Normal 0.34-5.60 [facility] Comment on above: Performed By: #### 1 [id number], [id number] #### [facility] [address] [place] [address] Coding Summary.on 05-10-2022 Coding Summary. CD:[id number] G h0bWw+PGhlYWQ+IV7HRBU gE75ihLBvpF2ZN2kDYB7S WBTNJKNBVC5KXG7vbIB8X ZhtY4AyyxJm BpydaXXmXI83RCx6UDT3k IssGZtsbG4rwBZzU0o1Ej ZwDS08hA49TRwkOJXfEzD 3LjZpbjsgbWFy P2ztGwDqcUBxUnk+PHRhY mxlIHdpZHRoPScxMDAlJy RnxZhaKR6dIi8wATIgHFY vbGxhcHNlOiBj j0etKLXiPAckFU0ifTavQ 8PswXB9NVAyk2d9We38iE I+DEIiLPI7wPakJRvjw39 0ToNdw2owJUR7 yUSrZSbqLNT0L22dt9J1I UXnWWSqAET1eJR0jV3klX shiufxT0HjkOUtXgP6ZGL 7dNGegQ6qzLfl ecfrlR3sVxe+T49RWT6WG SOKYI5WEre6C6UyHsmiiA I+ZL55UASdYJ19qORfjFI hq6ttlEb1YcWx IHFzFUO0qWueWTlbh5CaK BQgZ74jnHRyp0J9EXHzuV mnxPNbBgIufPS9dN5cVYc xsxlpt7vxbxfz Rwvvf1jxww28qA38C72mC CnnHKQgZFF6CIBjCWRwqJ faxu9mrH7iVl2+VXgzo1m kv6yvxDt9HjKt TXXausVjiNbxLKA3e1LmL x10J5IcgBjap8OdSbq4xw 08rTVjf7R7pJT4FKrhHQV zfN2aNBxzBiK3 RUGqXjOssD84xSCfMLdtF q3hsXfyuEvkUH1jWDUtex ejAJHqnF6uXAAriRTpjGk uXE9hBDWuswud y320OkDqOTY8EKNeaZRtF 1NzmM2uTrFoFPQnDKWqM7 RpgCNvDDscP759VJwbXpY 8EPPlasRuJ7Ew SLLglTcoPlX8y7I4Ym4Om 4MnivpuTWM5JXyvCLCrSn A8GjFwAcM7D4AnJri9WAA xtLhrJK8tN8Sq LXOhxxxhtusibMH2MKNhV WWdtX33zMCkNSmkZm2if3 D2w330VQZyDMFowU31Ws8 udDogMTBwdCBU fM2kmuonv1svnsyhNdAlP UUiLHx0LNq1UURbvGxmPv LgPHR8ClL8LOM1oNAygT0 bwObmqftbuO4h Oyc+O15eoE8kEIS9GSQ3p dhuZBVwmbSvZD92JE61K1 RyPjwvdGFibGU+PGRpdiB mqHvwHC9zRoIp f3xtz7AmBMxmD1BwGPYkN QccZdx3LJWdRMH2eRP6gR 8uBGXhSDkdi7R8bSL5T7O befYdzj4cs5cy LPSrXNsrR86gwLMwd9J7R KKldRC7DTQcgWamUfLwuA 93Oyc+QSCysTgqm1ZqHci lv3opu7hdjRq6 AzOrBMZzkmTusLvpJQB3u 5RlPi16M52yWCnmKPLtIX YcDUBeVDIqqJdqqy1afR9 wIi8+PGNvbCB3 hMZ2oT2jLOGqQjY3SKhwR 551ThNqrSDbYdoaj1uyj2 pjlSs9TrUuOKTfdaQelQz oUNG8h3SdDj29 C38nNRkqNLEkERYzRJLyV EEphFpmen4ksX9gIi1+PC 7sw7czzb45aO01cEA+PHR dTYF8pNdeQRyn XCAuxN9lNGkzVsV5QJDnM xEctW50mLMjNFiyDk6gpF ajnSalVO0tFTDpugnxh20 6PrEfr0wrNETb kSMqPMswQHZ2B58tz0L2B SEcYZCtZQN8pZB1pS7ufA lnbjogbGVmdDsgdmVydGl iTIxgQVvdZ526 IHRvcDsnPlBhdGllbnQgT fNhBJa3K1YpNfm3USHvhU mmAA5thTUnMPdlPp0htVv tyMbgTX1lGMIo pclpg008DzTlo3sjKKOxt YIkEOklVMK4C68hx2L2TW GsHBDzPLA4sFI9eK8lwQw nbjogbGVmdDsg utEhqUnaETnqCNlvV862A HRvcDsnPkJpcnRoIERhdG O4LI05IN44iVElg6Q9bRY 4T6WtXFVgkmsj lvxbfPW9UOQvAZRmnI59A i1sbXjxJw0hEPWrKYS0OP TgpJAjH3BifZ2dAoSoRPE yFOCtQ2SfuOEl LTjdA394HAhuVpR4DABod gYpB1NfGTJtkIxqUoX2s5 W2So4UI9H6OG29DR97xEU iy2S5tQI6S3Dq NLIdomvzvajjeWE9GLSxQ XAfcT21Mu2ofXiaFo7iAF NyXRA4SUZkcVCqE8MgwP2 yOiAjMDAwMDAw S8QisDSuRQhdK939PEryH tP0NRBlqxHrC2VkLNDbvZ uvQsT3n5K8Su7LZCa8UI1 9XG50pLPlh2S2 kOK7D1FjSCTlvvhjxacyx PQ3WGWkOIRgpA99In2dlA feTi9sORLyWRP4YGIasRX nR3LhxY2aTuHm SYBpSTPqJ0VptNMxNDkmB 746OIcuBtH8AOEvnjMbO2 AkZCXbvHkuPbK5h8Q7Mr6 RBLEkVP81RIA4 xEA0IL54TZ40O0CsDpwao GFibGU+PHRhYmxlIHdpZH RoPScxMDAlJyBzdHlsZT0 mGd7rJVGfQQQk pAklhUQlDpPua9nsBEJtR CwyCI9trDbmV6FvoKS9UL Eig1m8Ip64D08jR6DqiMC +BBFrhMT9qQR6 dH9wTeFmTfK0EWtoV778F fNznVCqQuitt2qap3dbbV w4XaG2PSEwezAraBxuUIN 4k6KaMw00N90k IHdpZHRoPSIxNSUiIHZhb Jnojy8keN8hCx9+PGNvbC P2pAI3qV9lJdAkKmK6BTw vM606KpCwjPGl Dlagy8etd3zuyWj6IsCjF OQsaaGufMoeOKX0i3OmJo 73A3JucCkmx6FsLep5fc0 2uPTjx2G6jDY7 M8TzOAHougazdOPsgTwaX V3dWMHghkxyWLSowJ4hSA JgL5q6ZxSkLiH1EWrmZ5O hdaB6FAVuxHNw EKndFLH7D54qa2N4AGOxE MFgARJ2ySS8rH5qjNdyhr ogbGVmdDsgdmVydGljYWw mUHbkN879OILq qVqsFLRohS0gUPTwbKUtk JldQC9pLCOanmnvUjWVWn kVK1cMIdvbCGBIAEOBHB4 8XC58yAQfx0R8 sCP9O7YrJXRklfvekdazw IA7QOMtXQTgmA96jJBiRI ofZw4rg6K3o208QGMdHQH anJ92Ua4csQwr AFVudACPkJ3hutkyk6qtn bwwUoBxLGRtOUw7ZXz5AC MtxKphQmLpCQQ8KrJ9WUX 8mURsnA3wuMvf frldhM2bIau+MDYvMDUvM Ck4BSzpnFB+WCIjYKR1fE vxCEvqCKMicD6cTACdC8i 2TmCbTyD4UCqs Z7GxZQVwaptbXc23mC6iF gBcMnA8IXiqW9LakoA2IE YwrNQsMKklLYD4N62ug0R 3CWNnZXQaIEO7 cIM8tA5jfVaahjocbBIle DsgdmVydGljYWwtYWxpZ2 69XJCxrRsdPlY4KTnrWWG tUT00MW37tRXk v7Y5jIF7X9WqTSNfziwbu otpwRM1DYLiTDUdlV24gT TyBYcoMx1rp8L9c202FHE nXKIchK70Sg6k jRgvYMAgkNLCtQ8rzhzal 1nhrorfAdAtPPZkKNh0WC i2FXEmtGneLeZkTGD6OdU 9TTV6hAGgiC6y fYnzcuennT5wSux+TWFsZ TwvdGQ+STOrRLU4oFxgOJ xlWIOzcF4yXTBaP3i5JuN lMfG0BKqjK5Sr WFNpbtxrEb04eC9bRoWvY jM8YBszX1AubfC5LFHypJ RnKWkbGXJ8C72nl4A9ICG uOZTxRHX7uSQ7 qZ5clNrgsxrmgJEttFnbx gMrqAuuQDfsQKwzK104LN DyuUtxTohnZxNHjg0kPY7 mZjwvdGQ+PC90 mi53T9EnEhppGso1TUKcC KD3zLL0wV0cLFOaBFpmo3 M4fPG0M2XlmrZlze7oq9n kOHSpKVtkU14p rBRzm1X8WUPfdAH5CHRio VjvOjLxjD46Gvk+PGNvbG qxa2ImDnkrs8ioo6mcoDo 9IjMwJSIgdmFs cDlcEWL5i9KjZd61T50rE HdpZHRoPSIzMCUiIHZhbG sroz9afY5jMz4+PGNvbCB 6wKX7mG5bOhFa WbO1KNroQ423EvJsiQYeI lase3gie0nosXr5SaVpQD IfuqAxmFujDIF0t1DmIw3 3I8PyoOtex6Pt Sij6af91jLFcp0L0gXD1N 3BhZGRpbmctbGVmdDogMC 0bOXMegmsjSQDjbM8oATU vJ0c9IhQiZnG3 GGjpX3LyqlJ7RHYqdLWcW MTivTBKhE1bdplvm1iduz rdXdPyGLXwJHt6CVx1PRO saWduOiBsZWZ0 DkA9USO5iJRomW0bbZiyh zryaD6tGuz+AZh3y7wgeN LhHT6fqTW0DK26RU47uBM wj4A1vJO9D9Sm JTKnoufhzfzkoJJ0NPStA OMfeP60Kw1tsLiiAi6cUW FaMAC6JKNbiAUqY3YpdP8 yOiAjMDAwMDAw W2SyaNWvASwuX382NGnuS gY5TWEfaqLpZ9XkEFLayT yrAnV4r4K8Ur1WDF47LF4 3WD78wGRnl3A7 lQB4H3FdHOXunsimkrbtw UY7CRTzBIQpmZ42Lv0sfD dsLn3fYZAuPRC6MXDzsTQ jR6VetW4wGyXv OJDrCZDfN1UgrKOhAWttR 810RMaeIeW0BRDnhlXcW9 FsVSYtcGdpKyP8u9X4Wk0 DNx52KR34VD09 qVXvm8I0iQZ7E3LjGRHlt wycqcqiwFK3FYLfEYGeeO 32Jq4rpFwiOc9iUBJzGON 2AUVaeIXfD5Sg rY2pXlKqXTFkUDYzN6Zzo NAiFNadT235SCfrUnY5YP DgukYxI9FvVRDlrFrgNxG 7x1C0Jj1GZLlu xvo7A5NtBaypcJO+PC90Y OWrYI98dJXjdILqk1hwwV c0ZgSkTPApOBY3uTnsRKn am3XnIKPrA83e bGFw (more content not included)... Normal [facility] CHEMISTRYOrdered By: SYSTEM SYSTEM on 05-05-2022 Cholesterol [Mass/Vol] 264 mg/dL High 120 - 200 mg/dL [facility] Cholesterol in HDL [Mass/Vol] 43 mg/dL Invalid Interpretation Code [facility] Cholesterol in LDL [Mass/Vol] 183 mg/dL High <=129mg/dL [facility] Cholesterol in VLDL [Mass/Vol] 39 mg/dL Normal 7 - 40 mg/dL [facility] Triglyceride [Mass/Vol] 194 mg/dL High <=149mg/dL [facility] TSH Qn 2.64 m[IU]/L Normal 0.34 - 5.60 mcIU/mL [facility] Lipid Panelon 05-05-2022 Cholesterol [Mass/Vol] 264 mg/dL High 120-200 [facility] Comment on above: Performed By: #### 2 [id number] #### [facility] [address] [place] [address] Cholesterol in HDL [Mass/Vol] 43 mg/dL Invalid Interpretation Code [facility] Comment on above: Result Comment: HDL > or equal to 60 mg/dL: Low cardiovascular risk HDL < 40 mg/dL : High cardiovascular risk Performed By: #### 2 [id number], [id number] #### [facility] [address] [place] [address] Cholesterol in LDL [Mass/Vol] 183 mg/dL High <=129 [facility] Comment on above: Performed By: #### 2 [id number], [id number] #### [facility] [address] [place] [address] Cholesterol in VLDL [Mass/Vol] 39 mg/dL Normal 7-40 [facility] Comment on above: Performed By: #### 2 [id number], [id number] #### [facility] [address] [place] [address] Triglyceride [Mass/Vol] 194 mg/dL High <=149 [facility] Comment on above: Performed By: #### 2 [id number], [id number] #### [facility] [address] [place] [address] Physician Orderon 05-05-2022 Physician Order [id number] #[id number] Normal [facility] TSH With T4fr Reflexon 05-05 TSH Qn 2.64 m[IU]/L Normal 0.34-5.60 [facility] Comment on above: Performed By: #### 2 [id number], [id number] #### [facility] [address] [place] [address] CARDIAC RENETTA ADMITon 022 CK [Catalytic activity/Vol] 130 U/L Normal 39-308 [facility] Comment on above: Performed By: #### C MP, TSH, CMADM #### [facility] [address] [place], [place] [address] Dr. Elena Guido CK.MB [Mass/Vol] 1.31 ng/mL Normal <=3.60 [facility] Comment on above: Performed By: #### C MP, TSH, CMADM #### [facility] [address] [place], [place] [address] Dr. Elena Guido HSTROP 6.2 pg/mL Normal 4.0-76.1 [facility] Comment on above: Result Comment: CUT- OFF POINTS HAVE BEEN ESTABLISHED BASED ON THE FOURTH UNIVERSAL DEFINITIONS OF MYOCARDIAL INFARCTION. THE UPPER REFERENCE LIMIT (URL) OF TROPONIN, DEFINED THE 99TH PERCENTILE OF cTnI DISTRIBUTION IN A REFERENCE POPULATION, HAS BEEN CONFIRMED THE DECISION THRESHOLD FOR [place] DIAGNOSIS. Performed By: #### C JERARDO MYLES, YAW #### [facility] [address] [place] [address] Dr. Elena Guido LYN 1 ng/mL Critically low 16-96 [facility] Comment on above: Performed By: #### C JERARDO MYLES, YAW #### [facility] [address] [place] [address] Dr. Elena Guido CBC AUTO DIFFon 03-18-2022 BASO # 0.0 103/ul Normal 0.0-0.1 [facility] Comment on above: Performed By: #### C BC #### [facility] [address] [place] [address] Dr. Elena Guido Basophils/100 WBC (Bld) 0.3 % Normal 0.2-2.0 [facility] Comment on above: Performed By: #### C BC #### [facility] [address] [place] [address] Dr. Elena Guido EO # 0.3 103/ul Normal 0.0-0.7 [facility] Comment on above: Performed By: #### C BC #### [facility] [address] [place] [address] Dr. Elena Guido Eosinophils/100 WBC (Bld) 4.8 % Normal 0.9-7.0 [facility] Comment on above: Performed By: #### C BC #### [facility] [address] [place] [address] Dr. Elena Guido Erythrocyte distribution width (RBC) [Ratio] 12.7 % Normal 11.0-15.0 The [facility] Comment on above: Performed By: #### C BC #### [facility] [address] [place] [address] Dr. Elena Guido Hematocrit (Bld) [Volume fraction] 44.7 % Normal 42.0-54.0 [facility] Comment on above: Performed By: #### C BC #### [facility] [address] [place] [address] Dr. Elena Guido Hemoglobin (Bld) [Mass/Vol] 15.1 g/dL Normal 14.0-18.0 [facility] Comment on above: Performed By: #### C BC #### [facility] [address] [place] [address] Dr. Elena Guido IG # 0.02 10e3/ul Normal 0.00-0.03 The [facility] Comment on above: Performed By: #### C BC #### [facility] [address] [place] [address] Dr. Elena Guido IG % 0.3 % Normal 0.0-0.5 The [facility] Comment on above: Performed By: #### C BC #### [facility] [address] [place] [address] Dr. Elena Guido LYMPH # 2.0 103/ul Normal 1.2-3.8 The [facility] Comment on above: Performed By: #### C BC #### [facility] [address] [place] [address] Dr. Elena Guido Lymphocytes/100 WBC (Bld) 27.6 % Normal 20.5-60.0 [facility] Comment on above: Performed By: #### C BC #### [facility] [address] [place] [address] Dr. Elena Guido MANUAL DIFF REQ NO Normal [facility] Comment on above: Performed By: #### C BC #### [facility] [address] [place] [address] Dr. lEena Guido MCH (RBC) [Entitic mass] 29.1 pg Normal 25.9-34.0 The [facility] Comment on above: Performed By: #### C BC #### [facility] [address] [place] [address] Dr. Elena Guido MCHC (RBC) [Mass/Vol] 33.8 g/dL Normal 29.9-35.2 The [facility] Comment on above: Performed By: #### C BC #### [facility] [address] [place] [address] Dr. Elena Guido MCV (RBC) [Entitic vol] 86.1 fL Normal 80.0-94.0 The [facility] Comment on above: Performed By: #### C BC #### [facility] [address] [place] [address] Dr. Elena Guido MONO # 0.7 103/ul Normal 0.3-0.8 The [facility] Comment on above: Performed By: #### C BC #### [facility] [address] [place] [address] Dr. Elena Guido Monocytes/100 WBC (Bld) 9.5 % Normal 1.7-12.0 The [facility] Comment on above: Performed By: #### C BC #### [facility] [address] [place] [address] Dr. Elena Guido NEUT # 4.1 103/ul Normal 1.4-6.5 [facility] Comment on above: Performed By: #### C BC #### [facility] [address] [place] [address] Dr. Elena Guido Neutrophils/100 WBC (Bld) 57.5 % Normal 43.0-75.0 The [facility] Comment on above: Performed By: #### C BC #### [facility] [address] [place] [address] Dr. Elena Guido Platelet mean volume (Bld) [Entitic vol] 10.2 fL Normal 9.5-13.5 The [facility] Comment on above: Performed By: #### C BC #### [facility] [address] [place] [address] Dr. Elena Guido PLT 175 103/ul Normal 150-450 The [facility] Comment on above: Performed By: #### C BC #### [facility] [address] [place] [address] Dr. Elena Guido RBC 5.19 106/ul Normal 4.70-6.10 The [facility] Comment on above: Performed By: #### C BC #### [facility] [address] [place] [address] Dr. Elena Guido WBC 7.1 103/ul Normal 4.0-11.0 [facility] Comment on above: Performed By: #### C BC #### [facility] [address] [place] [address] HEAD WO CONon 03-18-2022 CT HEAD WO CON EXAMINATION: CT HEAD WO CON HISTORY: WEAKNESS COMPARISON: None. TECHNIQUE: CT examination of the head without IV contrast. Dose reduction techniques were achieved by using automated exposure control and/or adjustment of mA and/or kV according to patient size and/or use of iterative reconstruction technique. FINDINGS: The ventricles and basilar cisterns are within normal limits. No acute intra-axial or extra axial hemorrhage. No midline shift, mass effect, or edema noted. Visualized paranasal sinuses are clear. Mastoid air cells are clear. External and middle ear cavities are unremarkable IMPRESSION: No acute hemorrhage Electronically authenticated by: SHAWNA CALDERON Date: 2022-03-18 10:45 Normal The [facility] DRUG SCREEN RAPID (URINE)on 03-18-2022 AMP Negative Normal NEGATIVE The [facility] Comment on above: Performed By: #### E RUR, DRUGRPD #### [facility] [address] [place] [address] Dr. Elena Guido BAR Negative Normal NEGATIVE The [facility] Comment on above: Performed By: #### E RUR, DRUGRPD #### [facility] [address] [place] [address] Dr. Elena Guido BUP Negative Normal NEGATIVE The [facility] Comment on above: Performed By: #### E RUR, DRUGRPD #### [facility] [address] [place] [address] Dr. Elena Guido BZO Negative Normal NEGATIVE The [facility] Comment on above: Performed By: #### E RUR, DRUGRPD #### [facility] [address] [place] [address] Dr. Elena Guido MIN Negative Normal NEGATIVE The [facility] Comment on above: Performed By: #### E RUR, DRUGRPD #### [facility] [address] [place] [address] Dr. Elena Guido CUT-OFFS SEE BELOW Normal The [facility] Comment on above: Result Comment: AMP (Amphetamine): 500ng/mL, BAR (Barbituates): 200 ng/mL, BZO (Benzodiazepines): 150 ng/mL, BUP (Buprenorphine): 10 ng/mL, MIN (Cocaine): 150 ng/mL, mAMP (Methamphetamine): 500 ng/mL, MTD (Methadone): 200 ng/mL, OPI (Opiates): 100 ng/mL, OXY (Oxycodone): 100 ng/mL, PCP (Phencyclidine): 25 ng/mL, PPX (Propoxyphene): 300 ng/mL, THC (Cannabinoids): 50 ng/mL, TCA (Trycyclic Antidepressants): 300 ng/mL Performed By: #### E RUR, DRUGRPD #### [facility] [address] [place] [address] Dr. Elena Guido DRUG CUT HEADER DRUG CLASS TEST SYSTEM CUT-OFF CONCENTRATIONS ARE FOLLOWS: Normal [facility] Comment on above: Performed By: #### E RUR, DRUGRPD #### [facility] [address] [place] [address] Dr. Elena Guido mAMP Negative Normal NEGATIVE [facility] Comment on above: Performed By: #### E RUR, DRUGRPD #### [facility] [address] [place] [address] Dr. Elena Guido MTD Negative Normal NEGATIVE [facility] Comment on above: Performed By: #### E RUR, DRUGRPD #### [facility] [address] [place] [address] Dr. Elena Guido OPI Negative Normal NEGATIVE [facility] Comment on above: Performed By: #### E RUR, DRUGRPD #### [facility] [address] [place] [address] Dr. Elena Guido OXY Negative Normal NEGATIVE [facility] Comment on above: Performed By: #### E RUR, DRUGRPD #### [facility] [address] [place] [address] Dr. Elena Guido PCP Negative Normal NEGATIVE [facility] Comment on above: Performed By: #### E RUR, DRUGRPD #### [facility] [address] [place] [address] Dr. Elena Guido PPX Negative Normal NEGATIVE [facility] Comment on above: Performed By: #### E RUR, DRUGRPD #### [facility] [address] [place] [address] Dr. Elena Guido TCA Negative Normal NEGATIVE [facility] Comment on above: Performed By: #### E RUR, DRUGRPD #### [facility] [address] [place] [address] Dr. Elena Guido THC Negative Normal NEGATIVE [facility] Comment on above: Performed By: #### E RUR, DRUGRPD #### [facility] [address] [place] [address] Dr. Elena Guido ER URINE PROFILEon 2 Bilirubin Ql (U) Negative Normal NEGATIVE [facility] Comment on above: Performed By: #### E RUR, DRUGRPD #### [facility] [address] [place] [address] Dr. Elena Guiod Clarity (U) CLEAR Normal CLEAR [facility] Comment on above: Performed By: #### E RUR, DRUGRPD #### [facility] [address] [place] [address] Dr. Elena Guido Color (U) LT. YELLOW Normal YELLOW [facility] Comment on above: Performed By: #### E RUR, DRUGRPD #### [facility] [address] [place] [address] Dr. Elena OVALLE A micrscopic examination will be performed if indicated. Normal The [facility] Comment on above: Performed By: #### E RUR, DRUGRPD #### [facility] [address] [place] [address] Dr. Elena Guido Glucose Ql (U) Negative Normal NEGATIVE [facility] Comment on above: Performed By: #### E RUR, DRUGRPD #### [facility] [address] [place] [address] Dr. Elena Guido Hemoglobin Ql (U) Negative Normal NEGATIVE [facility] Comment on above: Performed By: #### E RUR, DRUGRPD #### [facility] [address] [place] [address] Dr. Elena Guido Ketones Ql (U) Negative Normal NEGATIVE [facility] Comment on above: Performed By: #### E RUR, DRUGRPD #### [facility] [address] [place] [address] Dr. Elena Guido LEUKOCYTES Negative Normal NEGATIVE The [facility] Comment on above: Performed By: #### E RUR, DRUGRPD #### [facility] [address] [place] [address] Dr. Elena Guido Nitrite Ql (U) Negative Normal NEGATIVE [facility] Comment on above: Performed By: #### E RUR, DRUGRPD #### [facility] [address] [place] [address] Dr. Elena Guido pH (U) 7.0 [pH] Normal 5-9 [facility] Comment on above: Performed By: #### E RUR, DRUGRPD #### [facility] [address] [place] [address] Dr. Elena Guido SPEC GRAVITY 1.015 Normal 1.005-<=1.025 [facility] Comment on above: Performed By: #### E RUR, DRUGRPD #### [facility] [address] [place] [address] Dr. Elena Guido UA PROTEIN Negative Normal NEGATIVE/ TRACE The [facility] Comment on above: Performed By: #### E RUR, DRUGRPD #### [facility] [address] [place] [address] Dr. Elena Guido UR MICRO IND NOT INDICATED Normal [facility] Comment on above: Performed By: #### E RUR, DRUGRPD #### [facility] [address] [place] [address] Dr. Elena Guido Urobilinogen Qn (U) 0.2 {Morgan'U}/dL Normal 0.2 - 1. 0 [facility] Comment on above: Performed By: #### E RUR, DRUGRPD #### [facility] [address] [place], [place] [id number] Dr. Elena Guido PROF 14(COMP METB)on 022 Albumin [Mass/Vol] 3.6 g/dL Normal 3.4-5.0 [facility] Comment on above: Performed By: #### C MP, TSH, CMADM #### [facility] [address] [place] [address] Dr. Elena Guido Albumin/Globulin [Mass ratio] 1.2 {ratio} Normal [facility] Comment on above: Performed By: #### C MP, TSH, CMADM #### [facility] [address] [place] [address] Dr. Elena Guido ALP [Catalytic activity/Vol] 97 U/L Normal 46-116 [facility] Comment on above: Performed By: #### C MP, TSH, CMADM #### [facility] [address] [place] [address] Dr. Elena Guido ALT [Catalytic activity/Vol] 46 U/L Normal 16-63 [facility] Comment on above: Performed By: #### C MP, TSH, CMADM #### [facility] [address] [place] [address] Dr. Elena Guido Anion gap [Moles/Vol] 9.2 mmol/L Normal [facility] Comment on above: Performed By: #### C MP, TSH, CMADM #### [facility] [address] [place] [address] Dr. Elena Guido AST [Catalytic activity/Vol] 20 U/L Normal 15-37 [facility] Comment on above: Performed By: #### C MP, TSH, CMADM #### [facility] [address] [place] [address] Dr. Elena Guido Bilirubin [Mass/Vol] 0.4 mg/dL Normal 0.2-1.0 [facility] Comment on above: Performed By: #### C MP, TSH, CMADM #### [facility] [address] [place] [address] Dr. Elena Guido Calcium [Mass/Vol] 8.5 mg/dL Normal 8.5-10.1 [facility] Comment on above: Performed By: #### C MP, TSH, CMADM #### [facility] [address] [address] [address] Elena Guido Chloride [Moles/Vol] 104 mmol/L Normal 98-107 The [facility] Comment on above: Performed By: #### C MP, TSH, CMADM #### [facility] [address] [address] [address] Elena Guido CO2 [Moles/Vol] 28.9 mmol/L Normal 21.0-32.0 [facility] Comment on above: Performed By: #### C MP, TSH, CMADM #### [facility] [address] [place] [address] Dr. Elena Guido Creatinine [Mass/Vol] 1.03 mg/dL Normal 0.70-1.30 [facility] Comment on above: Performed By: #### C MP, TSH, CMADM #### [facility] [address] [address] [address] Elena Guido EGFR-AF SOUTH [place]OREAN >60 Normal >=60 [facility] Comment on above: Performed By: #### C MP, TSH, CMADM #### [facility] [address] [place] [address] Dr. Elena Guido EGFR-NON AF [place]ORE[place] >60 Normal >=60 [facility] Comment on above: Performed By: #### C MP, TSH, CMADM #### [facility] [address] [address] [address] Elena Guido Globulin (S) [Mass/Vol] 3.1 g/dL Normal [facility] Comment on above: Performed By: #### C MP, TSH, CMADM #### [facility] [address] [address] [address] Elena Guido Glucose [Mass/Vol] 87 mg/dL Normal 74-106 [facility] Comment on above: Performed By: #### C MP, TSH, CMADM #### [facility] [address] [address] [address] Elena Guido Potassium [Moles/Vol] 4.1 mmol/L Normal 3.5-5.1 [facility] Comment on above: Performed By: #### C MP TSH, CMADM #### [facility] [address] [address] [address] Elena Guido Protein [Mass/Vol] 6.7 g/dL Normal 6.4-8.2 [facility] Comment on above: Performed By: #### C MP TSH, CMADM #### [facility] [address] [address] [address] Elena Guido Sodium [Moles/Vol] 140 mmol/L Normal 136-145 [facility] Comment on above: Performed By: #### C JERARDO MYLES, LISANDRODM #### [facility] [address] [place] [address] Dr. Elena Guido Urea nitrogen [Mass/Vol] 21.0 mg/dL Critically high 7.0-18.0 [facility] Comment on above: Performed By: #### C SHAR TSH, CMADM #### [facility] [address] [place] [address] Dr. Elena Guido Urea nitrogen/Creatinine [Mass ratio] 20.2 mg/mg Normal The [facility] Comment on above: Performed By: #### C SHAR TSH, CMADM #### [facility] [address] [place] [address] Dr. Elena Guido TSHon 03-18-2022 TSH 2.942 uIU/mL Normal 0.358-3.740 The [facility] Comment on above: Performed By: #### C SHAR TSH, CMADM #### [facility] [address] [place] [address] Dr. Elena Guido XR CHEST 1 Von 03-18-2022 XR CHEST 1 V EXAM: CHEST 1 VIEW HISTORY: COUGH TECHNIQUE: Chest, one view. COMPARISON: None. FINDINGS: There are low lung volumes and vascular crowding. No focal consolidation, pleural effusion, or pneumothorax. Pulmonary vasculature is within normal limits. Cardiomediastinal silhouette is normal. IMPRESSION: 1. Expiratory chest without acute cardiopulmonary disease. Electronically authenticated by: GURU DIXON Date: 2022-03-18 10:43 Normal [facility] Coding Summary.on 02-25-2022 Coding Summary. [id number] G h0bWw+PGhlYWQ+SL9IKFC yW66xzUHzbK2XI7dXCO3M KUXGSNNIHT0WME9rmFT1T LmkP6IuvhLd RzqooPStNK51KOg7PNJ1c UqaOXjtdX2opOEqV8r5Pn ZhYQ47kC53ABfvIDPiDiQ 3LjZpbjsgbWFy F8mgRjOgkCDqXzx+PHRhY mxlIHdpZHRoPScxMDAlJy ObiZowMA8wSm6nVQNfIDO vbGxhcHNlOiBj m5gxYEGkNGhjYZ1beWftO 7ZmsYW6FUSvm9l7Yx59iV I+QQInEFK2qDpzXQjnr61 6RgTgm6ldIXA8 pUNaOLfwRQL0M54wx0P7W XIaWBIfTSI7fXG5xD0tvC cbxdgbZ3ZujTLwZfK9GHX 4yKOxsA9qgRcq jairpE0kDpk+G45ZRQ5ZF GYWBW2PYay7G2JvQxxezM I+QL40CVDtGM65lWUlqWF cc5wlaPg6WmEf HXKfXCK7aAmlGJlxg2YjP DZbH80yrUCqi3D6WWRrfY hknXTiPvKirGD6mS7yGMf pbwscx0thihvi Vpvwh8uehr05rN02X55gU TbwCKRvXWQ9BSIoPPWqsB yhqb1ytS2wLt9+RGqhu8v pu4yeiWa1PxKt WMAwcxYezMqyWAH3t1DlH s04D6UymGjsa5DuSig2sp 50lKAwg5C7aOF2IVuyVFJ osE3uEBwqJfU4 IXJmMbLvyL75rFMcIHcvF a8aoVzqzWnxPM5oCFGniy ltCIVfbX3yVTZhaAWwwZr ySY8mWXZtdrko n815BfFmYVL8QYMikBKfB 5YjkH3yYoFpOVUvKXUwE3 GqfILfHYvjN948LVcoWhD 5VTFkexCoT0Gi LONvjMcnSbX3e8P5Gk6Vw 3RhqffqCAB9CFsoLQD1Vd AqOaDfNpT4V6NlPvt2HZF epWpjWT7mI2Nz SDNzfrcmkndzwPQ0FRUgV JFfsN28jJLdQAjoEv6qj0 U9f085YCAySTXpaM57Zf4 udDogMTBwdCBU jE8ynkktm6xaygmiXhZvP ZPxTMi4YEc3QGUufUrhVd FfGQR4GrL4JVQ0mXEnzY3 itCelunuihV7p Oyc+X02mrR0xADG2APA1y oewHMBljmNkJG09TX89Q2 RyPjwvdGFibGU+PGRpdiB ceGrbGE4uZdVf p2elh1VjCVnnF1ExEBVsQ LkoPyi0VGHhIMD6eHU1qN 6oFKFuNJwxo2K8yXB5A0U tsmZbqn6ia6vn OUQpLRnxS49jmEVwm4N7C PDksVO5ZCKonCfyNtWohC 93Oyc+JUDdyFejy8OyBaa tz3eje1uisIo4 UuFaBCUqkcFrhRpaQJO6s 7FaEe83T97dUNlnFWLmUR ZgYCCvKQAhfAazfy5qtB9 wIi8+PGNvbCB3 eNA7tX7fOTBtMnE8DGvzZ 703FfYakXLrTmoji6lns3 hmfIt9QfYgJIReksGepGr aKVG7h7UaMa08 U49rTHxnOTKnSBLtTKDkQ CKdbTknnk0ytA6jDv5+PC 0vy9cxef41yS90lDY+PHR jXBC9aSmfVJto XTVdiE5aQRidDlI7RJLiL jHwkV75kNKcCPnlPf8piM fskZwbTL4vWWSvbjeky53 5HnBht7wiCWOz iXBdMQkmESM9L17rf6W2X APcHVBgWZV2mJN5vJ4ptQ lnbjogbGVmdDsgdmVydGl wXGbmIPyyD548 IHRvcDsnPlBhdGllbnQgT jAgMRx2R4KnLsv8ZLRmcG duMN4ztZJoIXhuZe9ljDb mlItrPN6tQBBz pwqkm142AiPzg5saWVVtw YIsUGfrKMK1J23dh2O3FR LqMXVvKAY5gFC3xL4euMb nbjogbGVmdDsg qyHbgUoyTTogZMwwR871F HRvcDsnPkJpcnRoIERhdG C9GF35EM28cLPab4H6lZE 7U4YlIRBshkne znlafII5ZIOdGNHvdX64F f5dbVdnHa0zSVCqRGM1TT RqvHHfO8JgmB2xRzZeNHC rVFFuT4HbtOYt KXbpO586SFkhPbU1URBzi sSpR7GeUUEnlZvyKjW2g4 A2Ur1EI2W7LU18KH03vSE sb0F9bWC8R1Op VBAvxqakgyccsTZ4CENyG BGyrV22Ap8cnNbsZr4kIF ZyAZH5XRJhnJTyU6SvfO3 yOiAjMDAwMDAw M8MboGWbUHpzB454JGoqY uP9RJZqxlXcZ8EeQODjyM yvSaR4i9I4Yw7WNQs1ON2 0DD51iWEte1C5 wQF1V6HqDGWlzglrmkfld WR3RMHgYTKhfG46Pu4vaV otPq3bFHCeQZE7EOWgcEK bY0OccW2fDaUp GIOuCCVuR5VbdWQxTAacC 933UHokDvM6JOOtdbBqT1 AtGYHjaOzcYxZ1s1Q4Gr2 TVZIoTY23MGB6 zFI7QO90WL82P8CvMouta GFibGU+PHRhYmxlIHdpZH RoPScxMDAlJyBzdHlsZT0 qZh9kGZPuRBTb tZdmqXTwAhFmc8xtEIRmJ ZkxHM3aoKdtF8ApoGE7UY Zjn0n1Ib39D25xG2HkaMN +YWRnnLO7yJT3 fI1oAiBiZqM4NQvcV794H mFpdONwAxtgp5yho4ogmO a8GsJ6WKGctfRzbHthWYK 2i7BoUs03T21b IHdpZHRoPSIxNSUiIHZhb Niizc4gsD1dId0+PGNvbC B4xFJ1mW2mYoVrReQ6MAo zS410BbFtlUWj Qiqht6ouj6mdsEg8DjPtD PUecfUijHxzHSB4k5EiQp 65Y0LytEvgz2AdBkn6fd2 2qFTdh7T2aBD0 E3WgCHGgwpjaqOWcnFvbW D2iPOFpmucqBRXvmS6dFH HaN9x2ZhAhXpR0ILgrJ6P ywvC7VFOkgTHm FEyzLDM3A79uo0Q0HUVbM KXcUUE8nTQ3lR9ohByhun ogbGVmdDsgdmVydGljYWw yUNqpR205UUYa aLbnHDHvaY7lKWMrlEVra EhqAL9qHXNhdkmwIsOJBh rRP0nQXnngPMITENBJYC3 9HP64aTJmg2Y3 hJZ7L6GjCHVmtnvicprcy LY2SCEvZEKzgM07sUBbLL mjXj9pd4L9o285KFQlHUN mgZ15Pt7jnQex BDIkzFIJbF9xgahvh1hap mxyAlAzCEFwICe8BRv0QY LhcWheXyNuYKE0JuF7WVQ 5sQVvnD0fiLzw fngvdK1iClj+MDYvMDUvM Zf1LLstjXI+AUTnAFY1hT caGMfhODPjtV3mZMPxB0c 1GqQmKtH3TGhf E5LzQXIjktscVw43wD1rU aJeKoL1HLubS8GpkrV8ZT DqdRHbYOmkGVI8Y99wh5F 4ZQXnVQMePUO0 oDF3mX7uhUutneqksFWqz DsgdmVydGljYWwtYWxpZ2 30ILDozRdcJjR0MIncDSU jKX15SC67mZYf u6P6bKL1T6CbWMLdinfxd xmawIW3ALSsEUIzqX30dH YySKibMo0jj2P6b462YZT bASAgfJ27Qf0n eCxkXUUngYPCzI9cgovmc 6jowmbaMlFfISWoYVn1GN p1AJXqzDvdFqUeGPK2TbG 9CML3cKBfuZ3i bRbzjjubqW6xRji+TWFsZ TwvdGQ+EBVmXHX2mRnmNN xyUJQupP4oKDBmU7k6KrI fIhX3FAkyX8Yw VJTurpgkCl44eF8iUlItI nH2LJtuD6GlsoA9YADzeZ ZmHFytCNF0P65fa9C4DMR gNFMcMKA6dBA6 cZ8yxZdepwdjkNBduEbqn eHerQmwHDozSWhuE095CR PbzEmpXxmjMtSZse4oNF2 mZjwvdGQ+PC90 wq95H2PyUnyjGum3YYPeT IP3uOB4eK5pYDXkYEgut2 O5dBY1D6PvnyPvzj4ye6k sEFHoDSjkV26h sLQqw8X1EXWvyMA5SYUas SttZfXkhY46Vpu+PGNvbG zck5JqQoajs7syc6ujxJk 9IjMwJSIgdmFs sBodSYI0o2NeBf93A86gM HdpZHRoPSIzMCUiIHZhbG kyhm0zgX4sJl3+PGNvbCB 1zAG6bX2zLeKg UmG1GWxsH870JyHqzLQeV aucb2luq1bglWc2ZtZcIX AfywPlcJdvHAY5w7RaNx0 4R5IpsDdvx5Ma Jhh1yx62gDKoi7V9fYG9L 3BhZGRpbmctbGVmdDogMC 8uIROvoskiWWPboY3yRGX xI1d7ZwJeAeQ9 IQxtQ2TnjvP0IDDicFAvN HVihNPSpE3xsxpkg2dcst dsFaMgBIAxXWp4LOm5EJG saWduOiBsZWZ0 GjY9BOQ1sQYipX3itJwwz wdpfO1jWnj+VFb1k5qbrB GyOI9zfEC9VB39ZS61eGL jm1Z7dAL9Z6Nv TANjejyakyefyVC2KUByV RWgzG28Ji5zaOrrGd0vUJ IrSUG1LUKmxGCbR3VlvW5 yOiAjMDAwMDAw Y6CraOHlRAdyE788XKrrF bK8SWZquiZjL3SbZDKufC gxTrC7b9K2Ll0VRC37DN2 8MB58oARev7D8 lLM7E2WgHCPchbwdmylsk IV9MMGzOKDlnV40Lp7nnJ onUp7yKEZfIFC7NETyvJG eC4QtuV3pZkUv MMJoMCThW2PocJDnXTapM 641BEapMgS9DLOdgeOaT6 ZwCPZsuPfwYzM9r4W6Dc7 HYl52HP76BO63 cZPsr2H3jXV7J3NlGCZtx mcuxbxbnMU4KHCoRQAmkU 05Vc9euVjhFy8wLMAiDGO 1EAEpuUQaO7Oo bO7pXyIxWUXpLRWoL4Ymv UIbDReaR977RRguUcA1FG RjfrKsI8PgJCTxsCgeAdY 5o7K1Hw8QYOix cvf4M3RyJioekWG+PC90Y FSjJT00hZAvhMSls3mydQ a4VdNgSUPfUBV9kNbmGNt [id number] (more content not included)... Normal [facility] CHEMISTRYOrdered By: SYSTEM SYSTEM on 02-19-2022 Free T4 [Mass/Vol] 0.77 ng/dL Normal 0.58 - 1. 64 ng/dL [facility] TSH Qn 5.62 m[IU]/L High 0.34 - 5.60 mcIU/mL [facility] Free T4on 02-19-2022 Free T4 [Mass/Vol] 0.77 ng/dL Normal 0.58-1.64 [facility] Comment on above: Performed By: #### 1 [id number] #### [facility] [address] [id number] Physician Orderon 02-19-2022 Physician Order [id number] 1.00CD:127 Normal [facility] TSH With T4fr Reflexon 02-19 TSH Qn 5.62 m[IU]/L High 0.34-5.60 [facility] Comment on above: Performed By: #### 1 [id number] #### [facility] [address] [place] [address] CHEMISTRYOrdered By: SYSTEM SYSTEM on 12-25-2021 Free T4 index Calc [Mass/Vol] 7.56 ng/dL Normal 5.90 - 13.10 ng/dL [facility] T4 [Mass/Vol] 7.1 ug/dL Normal 4.6 - 9.1 mcg/dL [facility] T4 uptake [Mass/Vol] 42.6 % Normal 32.0 - 48.4 % [facility] - Chemistry and C hemistry - challengeOrdered By: SYSTEM SYSTEM on 12-25-2021 TSH Qn 5.37 m[IU]/L Normal 0.34 - 5.60 mcIU/mL [facility] Remisol Encounters Encounter Date Encounter Type Care Provider Facility Start: 08-11-2023 End: 08-11-2023 Lab Drop off SHELBI MASON [facility] Start: 05-19-2023 ambulatory Julián Francisco acility:[facility] Start: 02-01-2023 End: 02-02-2023 ambulatory [employer] SHELBI MASON Facility:[facility] Start: 11-02-2022 End: 11-03-2022 ambulatory MAYO FLORES Facility:[facility] Start: 10-27-2022 End: 10-27-2022 ambulatory NONE LISTED REQUEST Facility: Start: 10-25-2022 End: 10-26-2022 ambulatory INES Horton Facility: Start: 08-04-2022 End: 08-05-2022 ambulatory MAYO FLORES Facility:[facility] Start: 05-05-2022 End: 05-06-2022 ambulatory MEÑO BOWLES Facility:[facility] Start: 05-05-2022 End: 05-05-2022 Lab Drop off MEÑO BOWLES [facility] Start: 03-18-2022 End: 03-18-[address] NONE LISTED REQUEST Facility: Start: 02-19-2022 End: 02-20-2022 ambulatory Florence Moon Facility:[facility] Start: 02-19-2022 End: 02-19-2022 Lab Drop off FLORENCE MOON [facility] Start: 12-25-2021 End: 12-25-2021 Patient encounter procedure FLORENCE MOON [facility] Start: 11-05-2021 End: 07-12-2022 Recurring FLORENCE MOON [facility] Procedures Date Procedure Procedure Detail Performing Clinician None (qualifier value) MARCOS MOON Payers Date Payer Category Payer Self-pay 1985 Unknown [id number] 2.16.84 [id number] 1987 Unknown [id number] 2.16.84 [id number] 1987 Unknown [id number] 2.16.84 [id number] 1987 Unknown [id number] 2.16.8 [id number] 1987 Unknown [id number] 2.16.8 [id number] 1987 Unknown [id number] 2.16.8 [id number] 1987 Unknown [id number] 2.16.8 [id number] 1987 Unknown [id number] 2.16.8 [id number] 1959 Unknown [id number] 1959 Unknown [id number] Unknown [id number] 2.16.8 [id number] Social History Date Type Detail Facility Tobacco [facility] Comment on above: denies. denies. Male [facility] Tobacco smoking status No Smokin g Status Entered [facility] Evaluation + Plan note 08-11-2023 Note Date & Type Note Facility 08-11-2023 Evaluation + Plan note Diagnostic Tests PendingT3 Total 08/11/23 [facility] Evaluation + Plan note Note Date & Type Note Facility Evaluation + Plan note No data available for this section [facility] Hospital Discharge instructions Note Date & Type Note Facility Hospital Discharge instructions No data available for this section [facility] Progress note Note Date & Type Note Facility Progress note No data available for this section [facility] Summary Purpose Family History No Family History Records FoundNo Family History Records Found No data available for this section No Family History Records Found Advance Directives No Advanced Directives Records FoundNo Advanced Directives Records FoundNo Advanced Directives Records Found Additional Source Comments Care Team (unrecognized sect ion and content) Personnel Name: FER MOON CNPLYNN MARLIN Address: [address] [place] [address]- Personnel Name: [facility] Address: [address] [place] [address]- Personnel Name: FLORENCE MOON CNP Address: Address: [address] [place] [address]- Personnel Name: Red [place] VERMA Address: Address: [address] [place] [address] (unrecognized sect ion and content) No Status Records FoundNo Status Records FoundNo Status Records Found INFORMATION SOURCE (unrecogn ized section and content) DATE CREATED AUTHOR 11/01/2022 [facility] DATE CREATED AUTHOR AUTHOR'S ORGANIZ ATION 02/02/2023 [facility] DATE CREATED AUTHOR AUTHOR'S ORGANIZ ATION 08/21/2023 [facility] FOR RECORDS PERTAINING TO PATIENTS WHO ARE OR HAVE BEEN ENROLLED IN A CHEMICAL DEPENDENCY/SUBSTANCEABUSE PROGRAM, SOME INFORMATION MAY BE OMITTED. This clinical summary was aggregated from multiple sources. Caution should be exercised in using it in the provision of clinical care. This summary normalizes information from multiple sources, and as a consequence, information in this document may materially change the coding, format and clinical context of patient data. In addition, data may be omitted in some cases. CLINICAL DECISIONS SHOULD BE BASED ON THE PRIMARY CLINICAL RECORDS. [employer] [facility]. provides no warranty or guarantee of the accuracy or completeness of information in this document.
== END 2023-09-08 19:54 | disposition home or self-care (01) ==
LOC: SLEEP 19:53
PROVIDERS: PCP Nurse Practitioner Family; Visit Provider Nurse Practitioner Family
DX: G47.33 Obstructive sleep apnea (adult) (pediatric) (principal)
CPT/HCPCS: 95811

== ENCOUNTER 2024-05-02 09:47 | Outpatient (OUT) | payer OTHER, SELFPAY ==
--- OUTSIDE RECORDS SUMMARY | 2024-05-02 09:54 | XMS_ITS | CCD ---
Author Organization [facility] CliniSyct Care Team Providers Care Police Investigator Name Role Phone FLORENCE MOON Primary Care Physician [phone] INES RMAIREZ Admitting Unavailable REQUEST, NONE LISTED Primary Care Unavaila FLORENTINO Dominguez Consulting Unavailable BENJAMIN ., INES Attending Unavailable BENJAMIN Horton, INES Consulting Unavailable REQUEST, NONE LISTED Primary Care Unavaila amilcar Horton, INES Attending Unavailable BENJAMIN Horton, INES Admitting Unavailable GURU DIXON Consulting Unavailable BENJAMIN Horton, INES Consulting Unavailable SHAWNA CALDERON Consulting Unavailable REQUEST, NONE LISTED Primary Care UnavailIRENA Ayala Attending Unavailable CHIDI FOWLER Consulting UnavailIRENA Lucas Admitting Unavailable MARSHA LOPEZ Consulting Unavailable Florence Moon Primary Care Physician [phone] SHELBI MASON Attending Unavailable MARLON, SHELBI Admitting Unavailable MARLON, SHELBI Attending Unavailable MARLON, SHELBI Admitting Unavailable MARLON, SHELBI Admitting Unavailable SHELBI MASON Attending Unavailable MD Lionel Rosales Primary Care Provider MD Julián Lay Attending Provider [phone] DO Colin Vick Attending Provider [phone] DO Lenin Henao Referring Provider [phone] Lenin Henao Referring Unavailable Lionel Rosales Primary Care Unavailable Colin Vick Admitting Unavailable Colin Vick Attending Unavailable Lionel Rosales Primary Care Unavailable Julián Lay Admitting Unavailab Julián Sullivan Attending Unavailab JUDSON Lucero Attending Unavailable Hazel Burleson MD Unavailable Allergies Allergy Classification Reported Allergen(s) Allergy Type Date of Onset Reaction(s) Facility (1 source) No Known Medication Allergies; Translations: [No Known Medication Allergies] Propensity to adverse reactions (disorder) [facility] Medications Current Medications Medication Drug Class(es) Dates Sig (Normalized) Sig (Original) ARIPiprazole 10 mg oral tablet (3 sources) Atypical Antipsychotic Start: 02-09-2024 take 1 tablet by mouth once daily ARIPiprazole (Abilify) 10 MG tablet Take 10 mg by mouth 1 (one) time each day at the same time 02/09/2024 Active Start: 01-11-2018 End: 02-09-2024 take 2 mg by mouth once daily Aripiprazole Discontinue d 2 MG PO Daily January 11, 2018 12:00am February 09, 2024 2:26pm atorvastatin 40 mg oral tablet (2 sources) HMG-CoA Reductase Inhibitor Start: 02-09-2024 take 1 tablet by mouth once daily atorvastatin (Lipitor) 40 MG tablet Take 40 mg by mouth Daily 02/09/2024 Active busPIRone hydrochloride 30 mg oral tablet (10 sources) Start: 02-09-2024 take 30 mg by mouth once Buspirone Active 30 MG PO Once February 09, 2024 12:00am Start: 01-11-2018 End: 02-09-2024 take 10 mg by mouth three times daily Buspirone Discontinued 10 MG PO Three times daily January 11, 2018 12:00am February 09, 2024 2:26pm Start: 01-06-2018 End: 01-11-2018 take 30 mg by mouth twice daily Buspirone Discontinued 30 MG PO Twice daily January 06, 2018 10:45am January 11, 2018 5:03pm Start: 01-05-2018 take 1 tablet by kareem th twice daily busPIRone 30 mg oral tablet 30 mg = 1 tab(s), Oral, BID, Refills(s) 0 Start Date: 01/05/18 Status: Ordered Start: 05-27-2017 End: 01-06-2018 take 15 mg by mouth twice daily Buspirone Discontinued 15 MG PO Twice daily May 27, 2017 12:00am January 06, 2018 10:45am escitalopram 10 mg oral tablet (2 sources) Serotonin Reuptake Inhibitor Start: 02-09-2024 take 1 tablet by mouth once daily escitalopram (Lexapro) 10 MG tablet Take 10 mg by mouth Daily 02/09/2024 Active levothyroxine sodium 0.075 mg oral tablet (2 sources) l-Thyroxine Start: 02-09-2024 take 1 tablet by mouth before mealtime levothyroxine (Synthroid, Levoxyl) 75 MCG tablet Take 75 mcg by mouth in the morning. Take before meals. 02/09/2024 Active modafinil 200 mg oral tablet (3 sources) Sympathomimetic- like Agent Start: 02-09-2024 End: 04-11-2024 take 1 tablet by mouth once daily modafinil (Provigil) 200 MG tablet Take 200 mg by mouth 1 (one) time each day at the same time 04/11/2024 Active Completed/Discontinued Medications Medication Drug Class(es) Dates Sig (Normalized) Sig (Original) hydrOXYzine pamoate 50 mg oral capsule (1 source) Antihistamine Start: 05-27-2017 End: 01-06-2018 take 50 mg by mouth every six hours Hydroxyzine Pamoate Discontinued 50 MG PO Q6H May 27, 2017 12:00am January 06, 2018 10:45am lamoTRIgine 25 mg oral tablet (7 sources) Mood Stabilizer, Anti-epileptic Agent Start: 01-05-2018 End: 01-11-2018 take 2 tablets by mouth at bedtime Lamotrigine (Lamictal) 25 mg Tablet Discontinued 50 MG PO Bedtime January 06, 2018 12:00am January 11, 2018 5:02pm sertraline 100 mg oral tablet (10 sources) Serotonin Reuptake Inhibitor Start: 01-05-2018 End: 02-09-2024 take 100 mg by mouth once daily Sertraline Discontinued 100 MG PO Daily January 11, 2018 12:00am February 09, 2024 2:27pm Start: 05-27-2017 End: 01-11-2018 take 200 mg by mouth once daily Sertraline Discontinued 200 MG PO Daily January 06, 2018 10:28am January 11, 2018 5:02pm Start: 05-20-2017 End: 01-06-2018 take 150 mg by mouth once daily Sertraline Discontinued 150 MG PO Daily May 20, 2017 12:00am January 06, 2018 10:27am Problems Active Problems Problem Classification Problem Date Documented Da te Episodic/Chronic Complications of surgical procedures or medical care (2 sources) Drug therapy finding; Translations: [Unspecified adverse effect of drug or medicament, initial encounter] 02-09-2024 Episodic E Codes: Natural/environment (1 source) Other and unspecified overexertion or strenuous movements or postures, initial encounter; Translations: [OTH AND UNS OVREXRT/STRN MVMT/POS INT] Onset: 10-29-2022 Episodic Menopausal disorders (1 source) Hormone replacement therapy; Translations: [HORMONE REPLACEMENT THERAPY] Onset: 10-29-2022 Episodic Miscellaneous mental health disorders (1 source) Somatization disorder; Translations: [SOMATIZATION DISORDER] Onset: 03-20-2022 Chronic Mood disorders (9 sources) Depression; Translations: [Recurrent major depression] 01-05-2018 Chronic Other aftercare (1 source) Other extermination supervisor (current) drug therapy; Translations: [OTH FCI CURRENT DRUG THERAPY] Onset: 10-29-2022 Episodic Other connective tissue disease (1 source) Other muscle spasm; Translations: [OTHER MUSCLE SPASM] Onset: 10-29-2022 Episodic Other lower respiratory disease (1 source) Other specified respiratory disorders; Translations: [Other specified respiratory disorders] Onset: 04-12-2024 Episodic Other nutritional; endocrine; and metabolic disorders (1 source) Obesity; Translations: [Obesity, unspecified] Onset: 01-05-2024 01-05-2024 Chronic Pneumonia (except that caused by tuberculosis or sexually transmitted disease) (1 source) Bronchopneumonia, unspecified organism; Translations: [BRONCHOPNEUMONIA UNS ORGANISM] Onset: 10-27-2022 Episodic Residual codes; unclassified (1 source) Sleep apnea; Translations: [Sleep apnea, unspecified] 02-09-2024 Chronic Residual codes; unclassified (2 sources) Obstructive sleep apnea syndrome; Translations: [Obstructive sleep apnea (adult) (pediatric)] Onset: 01-05-2024 02-09-2024 Chronic Residual codes; unclassified (1 source) Sleep paralysis; Translations: [Other sleep disorders] 02-09-2024 Chronic Residual codes; unclassified (1 source) Daytime somnolence; Translations: [Other hypersomnia] 02-09-2024 Chronic Residual codes; unclassified (1 source) Other hypersomnia; Translations: [Hypersomnia, unspecified] 02-09-2024 Chronic Residual codes; unclassified (1 source) Obstructive sleep apnea (adult) (pediatric); Translations: [Obstructive sleep apnea (adult)(pediatric)] 02-09-2024 Chronic Residual codes; unclassified (1 source) Other sleep disorders; Translations: [Sleep related movement disorder, unspecified] 02-09-2024 Chronic Residual codes; unclassified (1 source) Hypnagogic hallucinations; Translations: [Other hallucinations] 02-09-2024 Episodic Residual codes; unclassified (1 source) Other hallucinations; Translations: [Hallucinations] 02-09-2024 Episodic Sprains and strains (1 source) Strain of muscle, fascia and tendon of lower back, initial encounter; Translations: [STRAIN MUSC FASC TENDON LW BACK INT] Onset: 10-29-2022 Episodic Suicide and intentional self-inflicted injury (1 source) Suicidal thoughts; Translations: [Suicidal ideations] 01-07-2018 Episodic Unclassified (2 sources) LOW BACK PAIN, [...] MENTAL STATUS UNSPECIFIED] Onset: 03-18-2022 Episodic Unclassified (6 sources) Assessment for suicidality 01-05-2018 Unclassified (1 source) LOW BACK PAIN, UNSPECIFIED; Translations: [LOW BACK PAIN, UNSPECIFIED] Onset: 10-27-2022 Unclassified (1 source) COUGH, UNSPECIFIED; Translations: [COUGH, UNSPECIFIED] Onset: 10-25-2022 Results Test Name Value Interpretation Reference Range Facility XR chest 2V*on 04-12-2024 XR chest 2V* [place] [address] XRay Report Signed Patient: Parrish Norris MR#: [id number] : 1985 Acct:[id number] Age/Sex: 38 / M ADM Date: 04/12/24 Loc: XD Room: Type: [facility] Attending Dr: Colin Vick DO Copies to: Lenin Henao DO, RES Colin Vick DO Ordering Provider: Lenin Henao DO, RES Date of Service: 04/12/24 XR/XR chest 2V*: Respiratory infection Chest 2 views CLINICAL HISTORY: Cough for 2 months. COMPARISON: None FINDINGS: Heart normal in size. No lung consolidation pneumothorax pleural effusion or free air. Bilateral reticulonodular densities. XR/XR chest 2V* IMPRESSION: BILATERAL RETICULONODULAR DENSITIES. FINDING IS NONSPECIFIC AND FURTHER EVALUATION WITH CT CHEST IS SUGGESTED. NO CONSOLIDATION IS SEEN. Impression dictated by: Clark Méndez Jr., DCliffordOClifford04/12/2024 3:33 PM Dictation Location: [place] [address] Transcribed By: [facility] 04/12/24 1533 Dictated By: Clark Méndez Jr, DO 04/12/24 1530 Signed By: 04/12/24 1533 Normal [facility] CBC w/ Auto Diffon 4 Basophils/100 WBC (Bld) 0.7 % Normal 0.0-2.0 [facility] Comment on above: Performed By: #### 2 161885, [id number], 21594036, 38835649, 9428730, 9095630 #### [facility] [address] [place] [address] Basophils/Leukocytes Auto (Bld) [Pure # fraction] 0.0 E9/L Normal 0.0-0.2 [facility] Comment on above: Performed By: #### 2 674785, 197273106, 12914876, 26497100, 9840598, 0315768 #### [facility] [address] [place] [address] Eosinophils (Bld) [#/Vol] 0.5 E9/L Normal 0.0-0.5 [facility] Comment on above: Performed By: #### 2 591771, [id number], 45489988, 33039292, 4346739, 5568410 #### [facility] [address] [place] [address] Eosinophils/100 WBC (Bld) 8.3 % High 0.0-8.0 [facility] Comment on above: Performed By: #### 2 609994, 887808088, 60116975, 80450809, 9215666, 7067917 #### [facility] [address] [place] [address] Erythrocyte distribution width (RBC) [Ratio] 13.7 % Normal 10.9-14.2 [facility] Comment on above: Performed By: #### 2 638628, 217390357, 11788586, 38622790, 9714507, 9197759 #### [facility] [address] [place] [address] Hematocrit (Bld) [Volume fraction] 43.9 % Normal 37.7-49.0 [facility] Comment on above: Performed By: #### 2 698907, 199171974, 09259231, 06392742, 5093413, 9290389 #### [facility] [address] [place] [address] Hemoglobin (Bld) [Mass/Vol] 14.9 g/dL Normal 13.5-17.5 [facility] Comment on above: Performed By: #### 2 773789, 105876168, 81360954, 44749716, 2425942, 8832705 #### [facility] [address] [place] [address] Lymphocytes (Bld) [#/Vol] 1.5 E9/L Normal 1.0-4.0 [facility] Comment on above: Performed By: #### 2 552128, 995738884, 06339662, 78248483, 9063264, 6826159 #### [facility] [address] [place] [address] Lymphocytes/100 WBC (Bld) 24.4 % Normal 14.0-50.0 [facility] Comment on above: Performed By: #### 2 425629, 258166220, 46725518, 81702546, 7166270, 5937300 #### [facility] [address] [place] [address] MCH (RBC) [Entitic mass] 29.2 pg Normal 27.0-34.0 [facility] Comment on above: Performed By: #### 2 703401, 674167204, 06945478, 31144105, 7629513, 5081823 #### [facility] [address] [place] [address] MCHC (RBC) [Mass/Vol] 33.9 g/dL Normal 31.4-36.0 [facility] Comment on above: Performed By: #### 2 138730, 602633401, 05994472, 07474859, 7854251, 0438586 #### [facility] [address] [place] [address] MCV (RBC) [Entitic vol] 85.9 fL Normal 80.0-100.0 [facility] Comment on above: Performed By: #### 2 492802, 868053505, 00390937, 49600202, 2919356, 1005463 #### [facility] [address] [place] [address]98[address] Monocytes (Bld) [#/Vol] 0.5 E9/L Normal 0.2-1.0 [facility] Comment on above: Performed By: #### 2 368564, 470959068, 31753516, 18626722, 0107310, 8855815 #### [facility] [address] [place] [address] Neutrophils (Bld) [#/Vol] 3.8 E9/L Normal 2.0-7.5 [facility] Comment on above: Performed By: #### 2 652736, 156600314, 73099124, 31879541, 8583265, 5494153 #### [facility] [address] [place] [address] Neutrophils/100 WBC (Bld) 59.3 % Normal 36.0-75.0 [facility] Comment on above: Performed By: #### 2 408037, 566017149, 69478942, 66299628, 9881317, 9965941 #### [facility] [address] [place] [address] Platelet mean volume (Bld) [Entitic vol] 8.4 fL Normal 6.4-10.8 [facility] Comment on above: Performed By: #### 2 746712, 809003035, 53362182, 04178329, 3225322, 8557963 #### [facility] [address] [place] [address] Platelets (Bld) [#/Vol] 190.0 E9/L Normal 150.0-500.0 [facility] Comment on above: Performed By: #### 2 247613, 808645175, 77531369, 05578657, 5537246, 7152174 #### [facility] [address] [place] [address]2558 RBC (Bld) [#/Vol] 5.1 E12/L Normal 4.3-5.9 [facility] Comment on above: Performed By: #### 2 927680, 646795912, 79259258, 14325582, 8641040, 8637389 #### [facility] [address] [place] [address] WBC corrected for nucl RBC Auto (Bld) [#/Vol] 6.3 E9/L Normal 4.0-11.0 [facility] Comment on above: Performed By: #### 2 711461, 154558280, 70194144, 43139891, 9074631, 8613827 #### [facility] [address] [place] [address] CHEMISTRYOrdered By: SYSTEM SYSTEM on 11-10-2023 Albumin [Mass/Vol] 4.1 g/dL Normal 3.3 - 5.0 gm/dL [facility] Albumin/Globulin [Mass ratio] 2.0 {ratio} Normal 1.1 - 2.2 [facility] ALP [Catalytic activity/Vol] 96 [iU]/d Normal 21 - 98 Int._Unit/L [facility] ALT No additional P-5'-P [Catalytic activity/Vol] 46 [iU]/d Normal 6 - 46 Int._Unit/L [facility] Anion gap [Moles/Vol] 11 mmol/L Normal 6 - 16 mEq/L R em[facility] Chem AST [Catalytic activity/Vol] 27 [iU]/d Normal 5 - 43 Int._Unit/L [facility] Bilirubin [Mass/Vol] 0.8 mg/dL Normal 0.0 - 1 .1 mg/dL [facility] Calcium [Mass/Vol] 9.3 mg/dL Normal 8.9 - 11. 1 mg/dL [facility] Chloride [Moles/Vol] 106 mmol/L Normal 101 - 1 11 mmol/L [facility] Cholesterol [Mass/Vol] 133 mg/dL Normal 120 - 200 mg/dL [facility] Cholesterol in HDL [Mass/Vol] 38 mg/dL Invalid Interpretation Code [facility] Comment on above: Result Comment: '>= 60 LOW RISK' '<= 40 HIGH RISK' Cholesterol in LDL [Mass/Vol] 74 mg/dL Normal <=129mg/dL [facility] Cholesterol in VLDL [Mass/Vol] 34 mg/dL Normal 7 - 40 mg/dL [facility] CO2 [Moles/Vol] 27 mmol/L Normal 21 - 31 mmol/L [facility] Creatinine [Mass/Vol] 0.9 mg/dL Normal 0.5 - 1.3 mg/dL [facility] eGFR 114 mL/min/1.73 m2 Normal >=59mL/mi n/1 .73 m2 [facility] Globulin (S) [Mass/Vol] 2.1 g/dL Normal 1.4 - 4.0 gm/dL [facility] Glucose [Mass/Vol] 111 mg/dL Normal 55 - 199 mg/dL [facility] Potassium [Moles/Vol] 4.3 mmol/L Normal 3.5 - 5.3 mmol/L [facility] Protein [Mass/Vol] 6.2 g/dL Normal 6.0 - 7.8 gm/dL [facility] Sodium [Moles/Vol] 140 mmol/L Normal 135 - 145 mmol/L [facility] T4 [Mass/Vol] 10.3 ug/dL High 4.6 - 9.1 mcg/dL [facility] Triglyceride [Mass/Vol] 168 mg/dL High <=149mg/dL [facility] TSH Qn 1.96 m[IU]/L Normal 0.34 - 5.60 mcIU/mL [facility] Urea nitrogen [Mass/Vol] 15 mg/dL Normal 5 - 21 mg/dL [facility] Urea nitrogen/Creatinine [Mass ratio] 17 mg/mg Normal 10 - 20 [facility] CHEMISTRYOrdered By: Carly araujo on 11-10-2023 HbA1c (Bld) [Mass fraction] 5.4 % Normal <=5.9% [facility] ChemAutoSS CMPon 11-10-2023 Albumin [Mass/Vol] 4.1 g/dL Normal 3.3-5.0 [facility] Comment on above: Performed By: #### 2 826740, 278208332, 06748836, 97040698, 3489041, 8020359 ####[facility] [address] [place] [address] Albumin/Globulin (S) [Mass conc ratio] 2.0 Normal 1.1-2.2 [facility] Comment on above: Performed By: #### 2 943911, 891033873, 72227477, 50260141, 8575966, 8075967 ####[facility] [address] [place] [address] ALP [Catalytic activity/Vol] 96 Int._Unit/L Normal 21-98 [facility] Comment on above: Performed By: #### 2 988956, 908516742, 58113958, 48396569, 7084058, 7891419 ####[facility] [address] [place] [address] ALT No additional P-5'-P [Catalytic activity/Vol] 46 Int._Unit/L Normal 6-46 [facility] Comment on above: Performed By: #### 2 287942, 081790878, 12312008, 74760995, 0893951, 4158626 ####[facility] [address] [address] Anion gap [Moles/Vol] 11 mmol/L Normal 6-16 [facility] Comment on above: Performed By: #### 2 314097, 924914915, 29033849, 30217193, 1423282, 7886294 ####[facility] [address] [place] [address] AST [Catalytic activity/Vol] 27 Int._Unit/L Normal 5-43 [facility] Comment on above: Performed By: #### 2 793716, 726750650, 20099059, 08309520, 7453111, 8705998 ####[facility] [address] [place] [address] Bilirubin [Mass/Vol] 0.8 mg/dL Normal 0.0-1.1 [facility] Comment on above: Performed By: #### 2 225959, 353371097, 80414175, 29013594, 5833102, 7012448 ####[facility] [address] [place] [address] Calcium [Mass/Vol] 9.3 mg/dL Normal 8.9-11.1 [facility] Comment on above: Performed By: #### 2 330196, 694027852, 64399341, 55500345, 0130911, 9108874 ####[facility] [address] [place] [address] Chloride [Moles/Vol] 106 mmol/L Normal 101-111 [facility] Comment on above: Performed By: #### 2 242847, 021125353, 31564305, 14224701, 9876888, 7077569 ####[facility] [address] [address] CO2 [Moles/Vol] 27 mmol/L Normal 21-31 [facility] Comment on above: Performed By: #### 2 845879, 132318042, 22840917, 88591558, 0998512, 5722597 ####[facility] [address] [place] [address] Creatinine [Mass/Vol] 0.9 mg/dL Normal 0.5-1.3 [facility] Comment on above: Performed By: #### 2 608916, 578013995, 74084570, 68140859, 0957724, 4112394 ####[facility] [address] [place] [address] Globulin (S) [Mass/Vol] 2.1 g/dL Normal 1.4-4.0 [facility] Comment on above: Performed By: #### 2 888988, 083123999, 35017109, 53269901, 5479678, 2627855 ####[facility] [address] [place] [address] Glucose [Mass/Vol] 111 mg/dL Normal 55-199 [facility] Comment on above: Performed By: #### 2 564517, 539016024, 69215436, 34379183, 8105092, 1219621 ####[facility] [address] [place] [address] Potassium [Moles/Vol] 4.3 mmol/L Normal 3.5-5.3 [facility] Comment on above: Performed By: #### 2 961631, 989056406, 14853847, 49653404, 7280666, 7475494 ####[facility] [address] [place] [address] Protein [Mass/Vol] 6.2 g/dL Normal 6.0-7.8 [facility] Comment on above: Performed By: #### 2 271258, 731985800, 60830802, 32870487, 8964070, 0964705 ####[facility] [address] [place] [address] Sodium [Moles/Vol] 140 mmol/L Normal 135-145 [facility] Comment on above: Performed By: #### 2 463969, 588614637, 69518153, 80845854, 7444223, 8978224 ####[facility] [address] [place] [address] Urea nitrogen [Mass/Vol] 15 mg/dL Normal 5-21 [facility] Comment on above: Performed By: #### 2 705510, 593161861, 14715597, 12345917, 6414627, 9103345 ####[facility] [address] [place] [address] Urea nitrogen/Creatinine [Mass ratio] 17 No Units Normal 10-20 [facility] Comment on above: Performed By: #### 2 777994, 541040524, 69514580, 68665500, 0338286, 3927355 ####[facility] [address] [place] [address] HEMATOLOGYOrdered By: SYSTEM SYSTEM on 11-10-2023 Basophils/100 WBC (Bld) 0.7 % Normal 0.0 - 2.0 % [facility] Basophils/Leukocytes Auto (Bld) [Pure # fraction] 0.0 E9/L Normal 0.0 - 0.2 E9/L [facility] Eosinophils (Bld) [#/Vol] 0.5 E9/L Normal 0.0 - 0.5 E9/L [facility] Eosinophils/100 WBC (Bld) 8.3 % High 0.0 - 8.0 % [facility] Erythrocyte distribution width (RBC) [Ratio] 13.7 % Normal 10.9 - 14.2 % [facility] Hematocrit (Bld) [Volume fraction] 43.9 % Normal 37.7 - 49.0 % [facility] Hemoglobin (Bld) [Mass/Vol] 14.9 g/dL Normal 13.5 - 17.5 gm/dL [facility] Lymphocytes (Bld) [#/Vol] 1.5 E9/L Normal 1.0 - 4.0 E9/L [facility] Lymphocytes/100 WBC (Bld) 24.4 % Normal 14.0 - 50.0 % [facility] MCH (RBC) [Entitic mass] 29.2 pg Normal 27.0 - 34.0 pg [facility] MCHC (RBC) [Mass/Vol] 33.9 g/dL Normal 31.4 - 36.0 gm/dL [facility] MCV (RBC) [Entitic vol] 85.9 fL Normal 80.0 - 100.0 fL [facility] Monocytes (Bld) [#/Vol] 0.5 E9/L Normal 0.2 - 1.0 E9/L [facility] Monocytes/100 WBC (Bld) 7.3 % Normal 4.0 - 14.0 % [facility] Neutrophils (Bld) [#/Vol] 3.8 E9/L Normal 2.0 - 7.5 E9/L [facility] Neutrophils/100 WBC (Bld) 59.3 % Normal 36.0 - 75.0 % [facility] Platelet mean volume (Bld) [Entitic vol] 8.4 fL Normal 6.4 - 10.8 fL [facility] Platelets (Bld) [#/Vol] 190.0 E9/L Normal 150.0 - 500.0 E9/L [facility] RBC (Bld) [#/Vol] 5.1 E12/L Normal 4.3 - 5.9 E12/L [facility] WBC corrected for nucl RBC Auto (Bld) [#/Vol] 6.3 E9/L Normal 4.0 - 11.0 E9/L [facility] AliG1smm 11-10-2023 HbA1c (Bld) [Mass fraction] 5.4 % Normal <=5.9 [facility] Comment on above: Performed By: #### 2 311413, 804525593, 45453512, 85905547, 5096465, 2019759 ####[facility] [address] [place] [address] Lipid Panelon 11-10-2023 Cholesterol [Mass/Vol] 133 mg/dL Normal 120-200 [facility] Comment on above: Performed By: #### 2 466082, 417110744, 69140805, 56359219, 8161914, 5731549 ####[facility] [address] [place] [address] Cholesterol in HDL [Mass/Vol] 38 mg/dL Invalid Interpretation Code [facility] Comment on above: Result Comment: '>= 60 LOW RISK' '<= 40 HIGH RISK' Performed By: #### 2 043790, 876923333, 10356885, 84496922, 9912823, 6039675 ####[facility] [address] [place] [address] Cholesterol in LDL [Mass/Vol] 74 mg/dL Normal <=129 [facility] Comment on above: Performed By: #### 2 142567, 961561475, 81320812, 49157780, 9395760, 6781900 ####[facility] [address] [place] [address] Cholesterol in VLDL [Mass/Vol] 34 mg/dL Normal 7-40 [facility] Comment on above: Performed By: #### 2 795971, 433239475, 41896270, 35634059, 2917021, 3549631 ####[facility] [address] [place] [address] Triglyceride [Mass/Vol] 168 mg/dL High <=149 [facility] Comment on above: Performed By: #### 2 527582, 989295725, 48667051, 43793813, 7695833, 2816066 ####[facility] [address] [place] [address] Physician Orderon 11-10-2023 Physician Order [id number]# 1.00TIFF Normal [facility] T4 & TSHon 11-10-2023 TSH Qn 1.96 m[IU]/L Normal 0.34-5.60 [facility] Comment on above: Performed By: #### 2 539306, 283397119, 11427369, 13906368, 2041685, 9836641 ####[facility] [address] [place] [address] T4 [Mass/Vol] 10.3 microgram/dL High 4.6-9.1 [facility] Comment on above: Performed By: #### 2 945918, 630854801, 99839522, 83751473, 2116834, 8330407 ####[facility] [address] [place] [address] eGFRon 11-10-2023 eGFR 114 mL/min/1.73 m2 Normal >=59 [facility] Comment on above: Order Comment: Order added by Discern Expert. Performed By: #### 2 [id number], [id number], [id number], [id number], 1988898, 9106513 ####[facility] [address] [place] [address] T3 Totalon 08-12-2023 T3 [Mass/Vol] 109 ng/dL Invalid Interpretation Code [id number] [facility] Comment on above: Result Comment: Perf ormed at: [facility] [address] [id number] PhD Chao Lin Performed By: #### 1 2304538, 39551725, 91852560, 3461032, 9117331 #### [facility] [address] [place] [address] CHEMISTRYOrdered By: SYSTEM SYSTEM on 08-11-2023 Albumin [...] Chem eGFR 100 mL/min/1.73 m2 Normal >=59mL/mi n/1 .73 m2 Remisol Chem Globulin (S) [Mass/Vol] 2.2 [...] mg/mg Normal 10 - 20 Remisol Chem CMPon 08-11-2023 Albumin [Mass/Vol] 4.3 g/dL Normal 3.3-5.0 [facility] Comment on above: Performed By: #### 1 2981893, 60197756, 60293137, 3183762, 8053029 #### [facility] [address] [place] [address] Albumin/Globulin [Mass ratio] 2.0 {ratio} Normal 1.1-2.2 [facility] Comment on above: Performed By: #### 1 3537734, 12566000, 15163554, 9614402, 2497611 #### [facility] [address] [place] [address] Alk Phos 103 Int._Unit/L High 21-98 [facility] Comment on above: Performed By: #### 1 7216596, 14956820, 49581888, 7845050, 7932266 #### [facility] [address] [place] [address] ALT 56 Int._Unit/L High 6-46 [facility] Comment on above: Performed By: #### 1 6258647, 58940509, 03830040, 7146717, 3509882 #### [facility] [address] [place] [address] Anion gap [Moles/Vol] 12 mmol/L Normal 6-16 [facility] Comment on above: Performed By: #### 1 3609477, 18935376, 18892593, 7934748, 0743053 #### [facility] [address] [place] [address] AST 31 Int._Unit/L Normal 5-43 [facility] Comment on above: Performed By: #### 1 1895658, 12933032, 18379431, 4619841, 2412932 #### [facility] [address] [place] [address] Bili Total 0.9 mg/dL Normal 0.0-1.1 [facility] Comment on above: Performed By: #### 1 8402826, 71909104, 41394676, 0603328, 8947780 #### [facility] [address] [place] [address] BUN/Creat Ratio 12 No Units Normal 10-20 [facility] Comment on above: Performed By: #### 1 8566991, 79502449, 47759429, 4401960, 5549666 #### [facility] [address] [place] [address] Calcium [Mass/Vol] 9.3 mg/dL Normal 8.9-11.1 [facility] Comment on above: Performed By: #### 1 4542420, 54280207, 13606055, 4474728, 8093367 #### [facility] [address] [place] [address] Chloride [Moles/Vol] 103 mmol/L Normal 101-111 [facility] Comment on above: Performed By: #### 1 5094852, 54556569, 43173534, 9496098, 4054204 #### [facility] [address] [place] [address] CO2 [Moles/Vol] 29 mmol/L Normal 21-31 [facility] Comment on above: Performed By: #### 1 2303300, 57168217, 11318916, 7830536, 9970905 #### [facility] [address] [place] [address] Creatinine [Mass/Vol] 1.0 mg/dL Normal 0.5-1.3 [facility] Comment on above: Performed By: #### 1 5534266, 70427476, 41834771, 2024529, 8803589 #### [facility] [address] [place] [address] Globulin (S) [Mass/Vol] 2.2 g/dL Normal 1.4-4.0 [facility] Comment on above: Performed By: #### 1 8958858, 74703897, 84177145, 9172445, 8669283 #### [facility] [address] [place] [address] Glucose [Mass/Vol] 78 mg/dL Normal 55-199 [facility] Comment on above: Performed By: #### 1 0107008, 75605936, 75157646, 5531467, 1489710 #### [facility] [address] [place] [address] Potassium [Moles/Vol] 4.4 mmol/L Normal 3.5-5.3 [facility] Comment on above: Performed By: #### 1 1650754, 88237781, 58683703, 5037130, 3615147 #### [facility] [address] [place] [address] Protein [Mass/Vol] 6.5 g/dL Normal 6.0-7.8 [facility] Comment on above: Performed By: #### 1 4231323, 52262779, 27990941, 9652599, 4685835 #### [facility] [address] [place] [address] Sodium [Moles/Vol] 140 mmol/L Normal 135-145 [facility] Comment on above: Performed By: #### 1 2869617, 59494697, 57229583, 8396366, 1229424 #### [facility] [address] [place] [address] Urea nitrogen [Mass/Vol] 12 mg/dL Normal 5-21 [facility] Comment on above: Performed By: #### 1 2948416, 67083071, 90250719, 5290728, 9255419 #### [facility] [address] [place] [address] Lipid Panelon 08-11-2023 Cholesterol [Mass/Vol] 153 mg/dL Normal 120-200 [facility] Comment on above: Performed By: #### 1 4475234, 35869094, 99080530, 1190099, 2448624 #### [facility] [address] [place] [address] Cholesterol in HDL [Mass/Vol] 44 mg/dL Invalid Interpretation Code [facility] Comment on above: Result Comment: '>= 60 LOW RISK' '<= 40 HIGH RISK' Performed By: #### 1 1118271, 28624725, 41128614, 5461756, 7726495 #### [facility] [address] [place] [address] Cholesterol in LDL [Mass/Vol] 78 mg/dL Normal <=129 [facility] Comment on above: Performed By: #### 1 9446437, 83728982, 30599587, 5843290, 6124457 #### [facility] [address] [place] [address] Cholesterol in VLDL [Mass/Vol] 48 mg/dL High 7-40 [facility] Comment on above: Performed By: #### 1 6683720, 08832187, 12671954, 5046500, 0176285 #### [facility] [address] [place] [address] Triglyceride [Mass/Vol] 240 mg/dL High <=149 [facility] Comment on above: Performed By: #### 1 7267366, 01224522, 13302003, 8162106, 9611233 #### [facility] [address] [place] [address] Physician Orderon 08-11-2023 Physician Order [id number] Normal [facility] TSH With T4fr Reflexon 08-11 TSH Qn 3.07 m[IU]/L Normal 0.34-5.60 [facility] Comment on above: Performed By: #### 1 4778536, 16888057, 91798556, 9966322, 3669667 #### [facility] [address] [place] [address] eGFRon 08-11-2023 eGFR 100 mL/min/1.73 m2 Normal >=59 [facility] Comment on above: Order Comment: Order added by Discern Expert. Performed By: #### 1 7885088, 35580299, 79730632, 4157218, 6991368 #### [facility] [address] [place] [address] Lipid Panelon 02-01-2023 Cholesterol [Mass/Vol] 149 mg/dL Normal 120-200 [facility] Comment on above: Performed By: #### 2 773949, 40319093 #### [facility] [address] [place] [address] Cholesterol in HDL [Mass/Vol] 40 mg/dL Invalid Interpretation Code [facility] Comment on above: Result Comment: HDL > or equal to 60 mg/dL: Low cardiovascular risk HDL < 40 mg/dL : High cardiovascular risk Performed By: #### 2 903004, 11457703 #### [facility] [address] [place] [address] Cholesterol in LDL [Mass/Vol] 79 mg/dL Normal <=129 [facility] Comment on above: Performed By: #### 2 803215, 69763718 #### [facility] [address] [place] [address] Cholesterol in VLDL [Mass/Vol] 47 mg/dL High 7-40 [facility] Comment on above: Performed By: #### 2 385555, 61928807 #### [facility] [address] [place] [address] Triglyceride [Mass/Vol] 235 mg/dL High <=149 [facility] Comment on above: Performed By: #### 2 133488, 26521257 #### [facility] [address] [place] [address] Physician Orderon 02-01-2023 Physician Order [id number]:127 Normal [facility] T4 & TSHon 02-01-2023 T4 [Mass/Vol] 9.1 microgram/dL Normal 4.6-9.1 [facility] Comment on above: Performed By: #### 2 173413, 69510180 #### [facility] [address] [place] [address] TSH Qn 1.73 m[IU]/L Normal 0.34-5.60 [facility] Comment on above: Performed By: #### 2 171936, 29116228 #### [facility] [address] [place] [address] XR LSPINE 2_3 VIEWSon 2022 XR LSPINE 2_3 VIEWS EXAM: XR LSPINE 2_3 VIEWS HISTORY: Low back pain COMPARISON: None. TECHNIQUE: 2 views FINDINGS: Maintenance of the normal lumbar lordosis.. Vertebral body heights and alignments exhibit no fracture or listhesis. Intervertebral disc space heights are unremarkable IMPRESSION: Normal lumbar spine x-rays Electronically authenticated by: MARSHA LOPEZ Date: 2022-10-27 21:22 Normal [facility] CBC AUTO DIFFon 10-25-2022 BASO # 0.0 103/ul Normal 0.0-0.1 [facility] Comment on above: Performed By: #### C BC ####[facility] [address] [place], [place] [address]DrClifford Guido Basophils/100 WBC (Bld) 0.2 % Normal 0.2-2.0 [facility] Comment on above: Performed By: #### C BC ####[facility] [address] [place], [place] [address]DrClifford Guido EO # 0.2 103/ul Normal 0.0-0.7 [facility] Comment on above: Performed By: #### C BC ####[facility] [address] [place], [place] [address]DrClifford Guido Eosinophils/100 WBC (Bld) 3.9 % Normal 0.9-7.0 [facility] Comment on above: Performed By: #### C BC ####[facility] [address] [place], [place] [address]DrClifford Guido Erythrocyte distribution width (RBC) [Ratio] 12.9 % Normal 11.0-15.0 [facility] Comment on above: Performed By: #### C BC ####[facility] Wfrsiiegis[address] [place], [place] [address]DrClifford Guido Hematocrit (Bld) [Volume fraction] 42.7 % Normal 42.0-54.0 [facility] Comment on above: Performed By: #### C BC ####[facility] [address] [place], [place] [address]DrClifford Guido Hemoglobin (Bld) [Mass/Vol] 14.7 g/dL Normal 14.0-18.0 [facility] Comment on above: Performed By: #### C BC ####[facility] [address] [place] [address]Dr. Elena Guido IG # 0.01 10e3/ul Normal 0.00-0.03 [facility] Comment on above: Performed By: #### C BC ####[facility] [address] [place] [address]Dr. Elena Guido IG % 0.2 % Normal 0.0-0.5 [facility] Comment on above: Performed By: #### C BC ####[facility] X[address] [place], [place] [address]DrClifford Guido LYMPH # 1.2 103/ul Normal 1.2-3.8 [facility] Comment on above: Performed By: #### C BC ####[facility] Z[address] [place], [place] [address]Dr. Elena Guido Lymphocytes/100 WBC (Bld) 25.9 % Normal 20.5-60.0 [facility] Comment on above: Performed By: #### C BC ####[facility] [address]ff[address] [place], [place] [address]Dr. Elena Guido MANUAL DIFF REQ NO Normal [facility] Comment on above: Performed By: #### C BC ####[facility] [address] [place], [place] [address]Dr. Elena Guido MCH (RBC) [Entitic mass] 28.9 pg Normal 25.9-34.0 [facility] Comment on above: Performed By: #### C BC ####[facility] [address] [place], [place] [address]Dr. Elena Guido MCHC (RBC) [Mass/Vol] 34.4 g/dL Normal 29.9-35.2 [facility] Comment on above: Performed By: #### C BC ####[facility] Jjoskrthov[address] [place], [place] [address]Dr. Elena Guido MCV (RBC) [Entitic vol] 84.1 fL Normal 80.0-94.0 [facility] Comment on above: Performed By: #### C BC ####[facility] [address] [place] [address]DrClifford Elena Guido MONO # 0.6 103/ul Normal 0.3-0.8 [facility] Comment on above: Performed By: #### C BC ####[facility] [address] [place] [address]DrClifford Caitlintheresa Guido Monocytes/100 WBC (Bld) 12.7 % Critically high 1.7-12.0 [facility] Comment on above: Performed By: #### C BC ####[facility] Cebptjiopf[address] [place], [place] [address]DrClifford Elena Guido NEUT # 2.6 103/ul Normal 1.4-6.5 [facility] Comment on above: Performed By: #### C BC ####[facility] Dbdaionvxh[address] [place], [place] [address]DrClifford Guido Neutrophils/100 WBC (Bld) 57.1 % Normal 43.0-75.0 [facility] Comment on above: Performed By: #### C BC ####[facility] [address] [place], [place] [address]DrClifford Elena Hay Platelet mean volume (Bld) [Entitic vol] 8.9 fL Critically low 9.5-13.5 [facility] Comment on above: Performed By: #### C BC ####[facility] [address]acvtjm[address] [place], [place] [address]DrClifford Tuckertheresa Hay PLT 167 103/ul Normal 150-450 [facility] Comment on above: Performed By: #### C BC ####[facility] [address]qak[address] [place], [place] [address]DrClifford Guido RBC 5.08 106/ul Normal 4.70-6.10 [facility] Comment on above: Performed By: #### C BC ####[facility] Y[address]oeby[address] [place], [place] [address]DrClifford Guido WBC 4.6 103/ul Normal 4.0-11.0 [facility] Comment on above: Performed By: #### C BC ####[facility] Aofdciglth[address] [place], [place] [address]Dr. Caitlintheresa Hay CULTURE BLOODon 10-25-2022 Microscopic examination of blood, culture Culture Observations: NO GROWTH AT 5 DAYS. Normal [facility] Comment on above: Performed By: #### B LDCX2 ####[facility] T[address]zm[address] [place], [place] [address]Dr. Elena Guido Microscopic examination of blood, culture Culture Observations: NO GROWTH AT 5 DAYS. Normal [facility] Comment on above: Performed By: #### B LDCX1 ####[facility] Tbrfnmhygr[address] [place], [place] [address]Dr. Elena Guido ER URINE PROFILEon 3 Bilirubin Ql (U) Negative Normal NEGATIVE [facility] Comment on above: Performed By: #### E RUR ####[facility] Bylhrccdwo[address] [place], [place] [address]Dr. Elena Guido Clarity (U) CLEAR Normal CLEAR [facility] Comment on above: Performed By: #### E RUR ####[facility] Qaqivhdmoz[address] [place], [place] [address]Dr. Elena Guido Color (U) YELLOW Normal YELLOW [facility] Comment on above: Performed By: #### E RUR ####[facility] Mg[address]kykazvu[address] [place], [place] [address]Dr. Elena Guido ERUAHD A micrscopic examination will be performed if indicated. Normal [facility] Comment on above: Performed By: #### E RUR ####[facility] Nyerngejsl[address] [place], [place] [address]Dr. Elena Guido Glucose Ql (U) Negative Normal NEGATIVE [facility] Comment on above: Performed By: #### E RUR ####[facility] Sjrmuffuiw[address] [place], [place] [address]Dr. Elena Guido Hemoglobin Ql (U) Negative Normal NEGATIVE [facility] Comment on above: Performed By: #### E RUR ####[facility] [address] [place] [address]Dr. Elena Guido Ketones Ql (U) Negative Normal NEGATIVE [facility] Comment on above: Performed By: #### E RUR ####[facility] [address]st[address] [place] [address]Dr. Elena Guido LEUKOCYTES Negative Normal NEGATIVE [facility] Comment on above: Performed By: #### E RUR ####[facility] [address] [place] [address]Dr. Elena Guido Nitrite Ql (U) Negative Normal NEGATIVE [facility] Comment on above: Performed By: #### E RUR ####[facility] Qwkxuswzky[address] [place], [place] [address]Dr. Elena Guido pH (U) 5.5 [pH] Normal 5-9 [facility] Comment on above: Performed By: #### E RUR ####[facility] Ptpybdlrqg[address] [place], [place] [address]Dr. Elena Guido SPEC GRAVITY 1.025 Normal 1.005-<=1.[address] [place] [address] Comment on above: Performed By: #### E RUR ####[facility] Cwwcmojw[address] [place], [place] [address]Dr. Elena Guido UA PROTEIN Negative Normal NEGATIVE/ TRACE [facility] Comment on above: Performed By: #### E RUR ####[facility] R[address]oomoxwum[address] [place], [place] [address]Dr. Elena Guido UR MICRO IND NOT INDICATED Normal [facility] Comment on above: Performed By: #### E RUR ####[facility] [address]vxpdlt[address] [place], [place] [address]Dr. Elena Guido Urobilinogen Qn (U) 0.2 {Morgan'U}/dL Normal 0.2 - 1. 0 [facility] Comment on above: Performed By: #### E RUR ####[facility] Pcwmmtagbh[address] [place], [place] [address]Dr. Elena Guido LACTATE/LACTIC ACIDon 2022 Lactate [Moles/Vol] 1.0 mmol/L Normal 0.4-2.0 [facility] Comment on above: Performed By: #### L ACT #### [facility] [address] [place], [place] [address] Dr. Elena Guido PROF 14(COMP METB)on 023 Albumin [Mass/Vol] 3.8 g/dL Normal 3.4-5.[address] [facility] Comment on above: Performed By: #### C MP ####[facility] [address] [place] [address]Dr. Elena Guido Albumin/Globulin [Mass ratio] 1.2 {ratio} Normal [facility] Comment on above: Performed By: #### C MP ####[facility] [address] [place] [address]Dr. Elena Guido ALP [Catalytic activity/Vol] 126 U/L Critically high 46-116 [facility] Comment on above: Performed By: #### C MP ####[facility] [address] [place] [address]Dr. Elena Guido ALT [Catalytic activity/Vol] 51 U/L Normal 16-63 [facility] Comment on above: Performed By: #### C MP ####[facility] [address]mt[address] [place] [address]Dr. Elena Guido Anion gap [Moles/Vol] 11.4 mmol/L Normal [facility] Comment on above: Performed By: #### C MP ####[facility] R[address]fgdwi[address] [place] [address]Dr. Elena Guido AST [Catalytic activity/Vol] 28 U/L Normal 15-37 [facility] Comment on above: Performed By: #### C MP ####[facility] [address]gt[address] [place] [address]DrClifford Guido Bilirubin [Mass/Vol] 0.9 mg/dL Normal 0.2-1.0 [facility] Comment on above: Performed By: #### C MP ####[facility] [address] [place] [address]DrClifford Guido Calcium [Mass/Vol] 8.9 mg/dL Normal 8.5-10.[address] [facility] Comment on above: Performed By: #### C MP ####[facility] [address] [place] [address]Dr. Elena Guido Chloride [Moles/Vol] 101 mmol/L Normal 98-107 [facility] Comment on above: Performed By: #### C MP ####[facility] [address]cciuno[address] [place] [address]Dr. Elena Guido CO2 [Moles/Vol] 30.5 mmol/L Normal 21.0-32.0 [facility] Comment on above: Performed By: #### C MP ####[facility] [address] [place] [address]Dr. Elena Guido Creatinine [Mass/Vol] 1.20 mg/dL Normal 0.70-1.30 [facility] Comment on above: Performed By: #### C MP ####[facility] [address] [place] [address]Dr. Elena Guido EGFR-AF ERITREAN >60 Normal >=60 [facility] Comment on above: Performed By: #### C MP ####[facility] [address] [place] [address]Dr. Elena Guido EGFR-NON AF ERITREAN >60 Normal >=60 [facility] Comment on above: Performed By: #### C MP ####[facility] Z[address]xwmck[address] [place] [address]Dr. Elena Guido Globulin (S) [Mass/Vol] 3.3 g/dL Normal [facility] Comment on above: Performed By: #### C MP ####[facility] [address]jb[address] [place] [address]Dr. Elena Guido Glucose [Mass/Vol] 118 mg/dL Critically high 74-106 [facility] Comment on above: Performed By: #### C MP ####[facility] [address] [place] [address]Dr. Elena Guido Potassium [Moles/Vol] 3.9 mmol/L Normal 3.5-5.1 [facility] Comment on above: Performed By: #### C MP ####[facility] [address]zs[address]fvy[address] [place], [place] [address]Dr. Elena Guido Protein [Mass/Vol] 7.1 g/dL Normal 6.4-8.[address] [facility] Comment on above: Performed By: #### C MP ####[facility] Wh[address]xttwuwa[address] [place], [place] [address]Dr. Elena Guido Sodium [Moles/Vol] 139 mmol/L Normal 136-[address] [facility] Comment on above: Performed By: #### C MP ####[facility] Uhvkmpxztu[address] [place], [place] [address]Dr. Elena Guido Urea nitrogen [Mass/Vol] 18.0 mg/dL Normal 7.0-18.0 [facility] Comment on above: Performed By: #### C MP ####[facility] Gdlospcbas[address] [place], [place] [address]Dr. Elena Guido Urea nitrogen/Creatinine [Mass ratio] 15.0 mg/mg Normal [facility] Comment on above: Performed By: #### C MP ####[facility] Wnvmhfrxnx[address] [place], [place] [address]Dr. Elena Guido RESPIRATORY PANEL PLUSon Adenovirus Not detected Normal NOT DETECTED [facility] Comment on above: Performed By: #### R SPLUS ####[facility] [address]ecq[address] [place], [place] [address]Dr. Elena Guido B. Parapertusis Not detected Normal NOT DETECTED [facility] Comment on above: Performed By: #### R SPLUS ####[facility] [address]uzktvmu[address] [place], [place] [address]Dr. Elena Guido B. Pertussis Not detected Normal NOT DETECTED [facility] Comment on above: Performed By: #### R SPLUS ####[facility] I[address]pfirevg[address] [place], [place] [address]Dr. Elena Guido Chlamydia Pneumoniae Not detected Normal NOT DETECTED [facility] Comment on above: Performed By: #### R SPLUS ####[facility] Y[address]qwkb[address] [place], [place] [address]Dr. Elena Guido Coronavirus 229E Not detected Normal NOT DETECTED [facility] Comment on above: Performed By: #### R SPLUS ####[facility] F[address]vhq[address] [place], [place] [address]Dr. Elena Guido Coronavirus HKU1 Not detected Normal NOT DETECTED The [facility] Comment on above: Performed By: #### R SPLUS ####[facility] J[address]vkv[address] [place], [place] [address]Dr. Elena Guido Coronavirus NL63 Not detected Normal NOT DETECTED The [facility] Comment on above: Performed By: #### R SPLUS ####[facility] Wtmtacqvlj[address] [place], [place] [address]Dr. Elena Guido Coronavirus OC43 Not detected Normal NOT DETECTED The [facility] Comment on above: Performed By: #### R SPLUS ####[facility] Zszz[address]fm[address] [place], [place] [address]Dr. Elena Guido Influenza A H1 Not detected Normal NOT DETECTED [facility] Comment on above: Performed By: #### R SPLUS ####[facility] Dzenvlnqxs[address] [place], [place] [address]Dr. Elena Guido Influenza A H1 2009 Not detected Normal NOT DETECTED [facility] Comment on above: Performed By: #### R SPLUS ####[facility] Aygstlqvsr[address] [place], [place] [address]Dr. Elena Guido Influenza A H3 Not detected Normal NOT DETECTED [facility] Comment on above: Performed By: #### R SPLUS ####[facility] [address] [place], [place] [address]Dr. Elena Guido Influenza B Not detected Normal NOT DETECTED The [facility] Comment on above: Performed By: #### R SPLUS ####[facility] Zqykaymeek[address] [place], [place] [address]Dr. Elena Guido Metapneumovirus Detected Abnormal NOT DETECTED The [facility] Comment on above: Performed By: #### R SPLUS ####[facility] Iztooxdfyl[address] [place], [place] [address]Dr. Caitlintheresa Guido Mycoplas. Pneumoniae Not detected Normal NOT DETECTED The [facility] Comment on above: Performed By: #### R SPLUS ####[facility] [address] [place], [place] [address]Dr. Elena Guido Parainfluenza 1 Not detected Normal NOT DETECTED The [facility] Comment on above: Performed By: #### R SPLUS ####[facility] Kdmsuivhov[address] [place], [place] [address]Dr. Caitlintheresa Guido Parainfluenza 2 Not detected Normal NOT DETECTED The [facility] Comment on above: Performed By: #### R SPLUS ####[facility] Dsoegfrwts[address] [place], [place] [address]Dr. Elena Guido Parainfluenza 3 Not detected Normal NOT DETECTED The [facility] Comment on above: Performed By: #### R SPLUS ####[facility] Ybjeqyvelt[address] [place], [place] [address]Dr. Elena Guido Parainfluenza 4 Not detected Normal NOT DETECTED The [facility] Comment on above: Performed By: #### R SPLUS ####[facility] Wpcabsbgve[address] [place], [place] [address]Dr. Elena Guido Rhino/Enterovirus Not detected Normal NOT DETECTED The [facility] Comment on above: Performed By: #### R SPLUS ####[facility] Xessuebrmg[address] [place], [place] [address]Dr. Elena Guido RP2 Header 1 RESPIRATORY PANEL: VIRUSES Normal The [facility] Comment on above: Performed By: #### R SPLUS ####[facility] Du[address]ox[address] [place], [place] [address]Dr. Elena Guido RP2 Header 2 RESPIRATORY PANEL: BACTERIA Normal The [facility] Comment on above: Performed By: #### R SPLUS ####[facility] [address] [place], [place] [address]Dr. Elena Guido RSV Not detected Normal NOT DETECTED The [facility] Comment on above: Performed By: #### R SPLUS ####[facility] M[address]guvj[address] [place], [place] [address]Dr. Elena Guido SARS-CoV-2 (COVID-19) RNA GALI+probe Ql (Unsp spec) Not detected Normal NOT DETECTED The [facility] Comment on above: Performed By: #### R SPLUS ####[facility] [address] [place], [place] [address]EsDr. Elena Guido XR CHEST 1 Von 10-25-2022 [...] [place] Date: 2022-10-25 20:27 Normal The [facility] CHEMISTRYOrdered By: SYSTEM SYSTEM on 05-05-2022 Cholesterol [...] Normal 0.34 - 5.60 mcIU/mL [facility] Remisol CARDIAC RENETTA ADMITon 022 CK [Catalytic activity/Vol] 130 U/L Normal 39-308 The [facility] Comment on above: Performed By: #### C MP, TSH, CMADM #### [facility] [address] [place], [place] [address] Dr. Elena Guido CK.MB [Mass/Vol] 1.31 ng/mL Normal <=3.60 The [facility] Comment on above: Performed By: #### C MP, TSH, CMADM #### [facility] [address] [place], [place] [address] Dr. Elena Guido HSTROP 6.2 pg/mL Normal 4.0-76.1 [facility] Comment on above: Result Comment: CUT- OFF POINTS HAVE BEEN ESTABLISHED BASED ON THE FOURTH UNIVERSAL DEFINITIONS OF MYOCARDIAL INFARCTION. THE UPPER REFERENCE LIMIT (URL) OF TROPONIN, DEFINED THE 99TH PERCENTILE OF cTnI DISTRIBUTION IN A REFERENCE POPULATION, HAS BEEN CONFIRMED THE DECISION THRESHOLD FOR [place] DIAGNOSIS. Performed By: #### C MP, TSH, CMADM #### [facility] [address] [place] [address] Dr. Elena Guido LYN 1 ng/mL Critically low 16-96 [facility] Comment on above: Performed By: #### C MP, TSH, CMADM #### [facility] [address] [place] [address] Dr. Elena Guido CBC AUTO DIFFon 03-18-2022 BASO # 0.0 103/ul Normal 0.0-0.1 [facility] Comment on above: Performed By: #### C BC #### [facility] [address] [place] [address] Dr. Elena Guido Basophils/100 WBC (Bld) 0.3 % Normal 0.2-2.0 [facility] Comment on above: Performed By: #### C BC #### [facility] [address] [place] [address] Dr. Elena Guido EO # 0.3 103/ul Normal 0.0-0.7 [facility] Comment on above: Performed By: #### C BC #### [facility] [address] [place] [address] Dr. Elena Guido Eosinophils/100 WBC (Bld) 4.8 % Normal 0.9-7.0 [facility] Comment on above: Performed By: #### C BC #### [facility] [address] [place] [address] Dr. Elena Guido Erythrocyte distribution width (RBC) [Ratio] 12.7 % Normal 11.0-15.0 [facility] Comment on above: Performed By: #### C BC #### [facility] [address] [place] [address] Dr. Elena Guido Hematocrit (Bld) [Volume fraction] 44.7 % Normal 42.0-54.0 [facility] Comment on above: Performed By: #### C BC #### [facility] [address] [place] [address] Dr. Elena Guido Hemoglobin (Bld) [Mass/Vol] 15.1 g/dL Normal 14.0-18.0 [facility] Comment on above: Performed By: #### C BC #### [facility] [address] [place] [address] Dr. Elena Guido IG # 0.02 10e3/ul Normal 0.00-0.03 [facility] Comment on above: Performed By: #### C BC #### [facility] [address] [place] [address] Dr. lEena Guido IG % 0.3 % Normal 0.0-0.5 [facility] Comment on above: Performed By: #### C BC #### [facility] [address] [place] [address] Dr. Elena Guido LYMPH # 2.0 103/ul Normal 1.2-3.8 [facility] Comment on above: Performed By: #### C BC #### [facility] [address] [place] [address] Dr. Elena Guido Lymphocytes/100 WBC (Bld) 27.6 % Normal 20.5-60.0 [facility] Comment on above: Performed By: #### C BC #### [facility] [address] [place] [address] Dr. Elena Guido MANUAL DIFF REQ NO Normal [facility] Comment on above: Performed By: #### C BC #### [facility] [address] [place] [address] Dr. Elena Guido MCH (RBC) [Entitic mass] 29.1 pg Normal 25.9-34.0 [facility] Comment on above: Performed By: #### C BC #### [facility] [address] [place] [address] Dr. Elena Guido MCHC (RBC) [Mass/Vol] 33.8 g/dL Normal 29.9-35.2 [facility] Comment on above: Performed By: #### C BC #### [facility] [address] [place] [address] [address] Elena Guido MCV (RBC) [Entitic vol] 86.1 fL Normal 80.0-94.0 [facility] Comment on above: Performed By: #### C BC #### [facility] [address] [place] [address] [address] Elena Guido MONO # 0.7 103/ul Normal 0.3-0.8 [facility] Comment on above: Performed By: #### C BC #### [facility] [address] [place] [address] Dr. Elena Guido Monocytes/100 WBC (Bld) 9.5 % Normal 1.7-12.0 [facility] Comment on above: Performed By: #### C BC #### [facility] [address] [place] [address] Dr. Elena Guido NEUT # 4.1 103/ul Normal 1.4-6.5 [facility] Comment on above: Performed By: #### C BC #### [facility] [address] [place] [address] Dr. Elena Guido Neutrophils/100 WBC (Bld) 57.5 % Normal 43.0-75.0 [facility] Comment on above: Performed By: #### C BC #### [facility] [address] [place] [address] Dr. Elena Guido Platelet mean volume (Bld) [Entitic vol] 10.2 fL Normal 9.5-13.5 [facility] Comment on above: Performed By: #### C BC #### [facility] [address] [place] [address] Dr. Elena Guido PLT 175 103/ul Normal 150-450 [facility] Comment on above: Performed By: #### C BC #### [facility] [address] [place] [address] Dr. Elena Guido RBC 5.19 106/ul Normal 4.70-6.10 [facility] Comment on above: Performed By: #### C BC #### [facility] [address] [place] [address] Dr. Elena Guido WBC 7.1 103/ul Normal 4.0-11.0 [facility] Comment on above: Performed By: #### C BC #### [facility] [address] [place] [address] HEAD WO CONon [...] SHAWNA CALDERON Date: 2022-03-18 10:45 Normal The [facility] DRUG SCREEN RAPID (URINE)on 03-18-2022 AMP Negative Normal NEGATIVE The [facility] Comment on above: Performed By: #### E RUR, DRUGRPD #### [facility] [address] [place] [address] Dr. Elena Guido BAR Negative Normal NEGATIVE The [facility] Comment on above: Performed By: #### E RUR, DRUGRPD #### [facility] [address] [place] [address] Dr. Elena Guido BUP Negative Normal NEGATIVE The [facility] Comment on above: Performed By: #### E RUR, DRUGRPD #### [facility] [address] [place] [address] Dr. Elena Guido BZO Negative Normal NEGATIVE The [facility] Comment on above: Performed By: #### E RUR, DRUGRPD #### [facility] [address] [place] [address] Dr. Elena Guido MIN Negative Normal NEGATIVE The [facility] Comment on above: Performed By: #### E RUR, DRUGRPD #### [facility] [address] [place] [address] Dr. Elena Guido CUT-OFFS SEE BELOW Normal The [facility] Comment on above: Result Comment: AMP (Amphetamine): [...] Performed By: #### E RUR, DRUGRPD #### [facility] [address] [place] [address] Dr. Elena Guido DRUG CUT HEADER DRUG CLASS TEST SYSTEM CUT-OFF CONCENTRATIONS ARE FOLLOWS: Normal [facility] Comment on above: Performed By: #### E RUR, DRUGRPD #### [facility] [address] [place] [address] Dr. Elena Guido mAMP Negative Normal NEGATIVE The [facility] Comment on above: Performed By: #### E RUR, DRUGRPD #### [facility] [address] [place] [address] Dr. Elena Guido MTD Negative Normal NEGATIVE The [facility] Comment on above: Performed By: #### E RUR, DRUGRPD #### [facility] [address] [place] [address] Dr. Elena Guido OPI Negative Normal NEGATIVE [facility] Comment on above: Performed By: #### E RUR, DRUGRPD #### [facility] [address] [place] [address] Dr. Elena Guido OXY Negative Normal NEGATIVE The [facility] Comment on above: Performed By: #### E RUR, DRUGRPD #### [facility] [address] [place] [address] Dr. Elena Guido PCP Negative Normal NEGATIVE The [facility] Comment on above: Performed By: #### E RUR, DRUGRPD #### [facility] [address] [place] [address] Dr. Elena Guido PPX Negative Normal NEGATIVE [facility] Comment on above: Performed By: #### E RUR, DRUGRPD #### [facility] [address] [place] [address] Dr. Elena Guido TCA Negative Normal NEGATIVE [facility] Comment on above: Performed By: #### E RUR, DRUGRPD #### [facility] [address] [place] [address] Dr. Elena Guido THC Negative Normal NEGATIVE [facility] Comment on above: Performed By: #### E RUR, DRUGRPD #### [facility] [address] [place] [address] Dr. Elena Guido ER URINE PROFILEon 2 Bilirubin Ql (U) Negative Normal NEGATIVE [facility] Comment on above: Performed By: #### E RUR, DRUGRPD #### [facility] [address] [place] [address] Dr. Elena Guido Clarity (U) CLEAR Normal CLEAR [facility] Comment on above: Performed By: #### E RUR, DRUGRPD #### [facility] [address] [place] [address] Dr. Elena Guido Color (U) LT. YELLOW Normal YELLOW [facility] Comment on above: Performed By: #### E RUR, DRUGRPD #### [facility] [address] [place] [address] Dr. Elena Guido ERUAHJhonny A micrscopic examination will be performed if indicated. Normal The [facility] Comment on above: Performed By: #### E RUR, DRUGRPD #### [facility] [address] [place] [address] Dr. Elena Guido Glucose Ql (U) Negative Normal NEGATIVE [facility] Comment on above: Performed By: #### E RUR, DRUGRPD #### [facility] [address] [place] [address] [address] Elena Guido Hemoglobin Ql (U) Negative Normal NEGATIVE The [facility] Comment on above: Performed By: #### E RUR, DRUGRPD #### [facility] [address] [place] [address] Dr. Elena Guido Ketones Ql (U) Negative Normal NEGATIVE [facility] Comment on above: Performed By: #### E RUR, DRUGRPD #### [facility] [address] [place] [address] Dr. Elena Guido LEUKOCYTES Negative Normal NEGATIVE [facility] Comment on above: Performed By: #### E RUR, DRUGRPD #### [facility] [address] [place] [address] Dr. Elena Guido Nitrite Ql (U) Negative Normal NEGATIVE [facility] Comment on above: Performed By: #### E RUR, DRUGRPD #### [facility] [address] [place] [address] Dr. Elena Guido pH (U) 7.0 [pH] Normal 5-9 [facility] Comment on above: Performed By: #### E RUR, DRUGRPD #### [facility] [address] [place] [address] Dr. lEena Guido SPEC GRAVITY 1.015 Normal 1.005-<=1.02 5 [facility] Comment on above: Performed By: #### E RUR, DRUGRPD #### [facility] [address] [place] [address] Dr. Elena Guido UA PROTEIN Negative Normal NEGATIVE/ TRACE The [facility] Comment on above: Performed By: #### E RUR, DRUGRPD #### [facility] [address] [place] [address] Dr. Elena Guido UR MICRO IND NOT INDICATED Normal [facility] Comment on above: Performed By: #### E RUR, DRUGRPD #### [facility] [address] [place] [address] Dr. Elena Guido Urobilinogen Qn (U) 0.2 {Morgan'U}/dL Normal 0.2 - 1. 0 [facility] Comment on above: Performed By: #### E RUR, DRUGRPD #### [facility] [address] [place] [address] [address] Elena Guido PROF 14(COMP METB)on 022 Albumin [Mass/Vol] 3.6 g/dL Normal 3.4-5.[address] [facility] Comment on above: Performed By: #### C MP TSH, CMADM #### [facility] [address] [place] [address] [address] Elena Guido Albumin/Globulin [Mass ratio] 1.2 {ratio} Normal [facility] Comment on above: Performed By: #### C MP TSH, CMADM #### [facility] [address] [place] [address] [address] Elena Guido ALP [Catalytic activity/Vol] 97 U/L Normal 46-116 [facility] Comment on above: Performed By: #### C MP TSH, CMADM #### [facility] [address] [place] [address] [address] Elena Guido ALT [Catalytic activity/Vol] 46 U/L Normal 16-63 [facility] Comment on above: Performed By: #### C MP TSH, CMADM #### [facility] [address] [place] [address] Dr. Elena Guido Anion gap [Moles/Vol] 9.2 mmol/L Normal [facility] Comment on above: Performed By: #### C MP TSH, CMADM #### [facility] [address] [place] [address] Dr. Elena Guido AST [Catalytic activity/Vol] 20 U/L Normal 15-37 [facility] Comment on above: Performed By: #### C MP TSH, CMADM #### [facility] [address] [place] [address] Dr. Elena Guido Bilirubin [Mass/Vol] 0.4 mg/dL Normal 0.2-1.0 [facility] Comment on above: Performed By: #### C MP, TSH, CMADM #### [facility] [address] [place] [address] [address] Elena Guido Calcium [Mass/Vol] 8.5 mg/dL Normal 8.5-10.[address] [facility] Comment on above: Performed By: #### C MP, TSH, CMADM #### [facility] [address] [place] [address] Dr. Elena Guido Chloride [Moles/Vol] 104 mmol/L Normal 98-107 [facility] Comment on above: Performed By: #### C MP, TSH, CMADM #### [facility] [address] [place] [address] Dr. Elena Guido CO2 [Moles/Vol] 28.9 mmol/L Normal 21.0-32.0 [facility] Comment on above: Performed By: #### C MP, TSH, CMADM #### [facility] [address] [place] [address] Dr. Elena Guido Creatinine [Mass/Vol] 1.03 mg/dL Normal 0.70-1.30 [facility] Comment on above: Performed By: #### C MP, TSH, CMADM #### [facility] [address] [place] [address] Dr. Elena Guido EGFR-AF ERITREAN >60 Normal >=60 [facility] Comment on above: Performed By: #### C MP, TSH, CMADM #### [facility] [address] [place] [address] Dr. Elena Guido EGFR-NON AF ERITREAN >60 Normal >=60 [facility] Comment on above: Performed By: #### C MP, TSH, CMADM #### [facility] [address] [place] [address] Dr. Elena Guido Globulin (S) [Mass/Vol] 3.1 g/dL Normal [facility] Comment on above: Performed By: #### C MP, TSH, CMADM #### [facility] [address] [place] [address] Dr. Elena uGido Glucose [Mass/Vol] 87 mg/dL Normal 74-[address] [facility] Comment on above: Performed By: #### C MP, TSH, CMADM #### [facility] [address] [place] [address] [address] Elena Guido Potassium [Moles/Vol] 4.1 mmol/L Normal 3.5-5.1 [facility] Comment on above: Performed By: #### C MP, TSH, CMADM #### [facility] [address] [place] [address] Dr. Elena Guido Protein [Mass/Vol] 6.7 g/dL Normal 6.4-8.[address] [facility] Comment on above: Performed By: #### C MP, TSH, CMADM #### [facility] [address] [place] [address] Dr. Elena Guido Sodium [Moles/Vol] 140 mmol/L Normal 136-[address] [facility] Comment on above: Performed By: #### C MP, TSH, CMADM #### [facility] [address] [place] [address] Dr. Elena Guido Urea nitrogen [Mass/Vol] 21.0 mg/dL Critically high 7.0-18.0 [facility] Comment on above: Performed By: #### C MP, TSH, CMADM #### [facility] [address] [place] [address] Dr. Elena Guido Urea nitrogen/Creatinine [Mass ratio] 20.2 mg/mg Normal [facility] Comment on above: Performed By: #### C MP, TSH, CMADM #### [facility] [address] [place] [address] Dr. Elena Guido TSHon 03-18-2022 TSH 2.942 uIU/mL Normal 0.358-3.[address] [facility] Comment on above: Performed By: #### C MP, TSH, CMADM #### [facility] [address] [place] [address] Dr. Elena Guido XR CHEST 1 Von 03-18-2022 XR CHEST 1 V EXAM: CHEST 1 VIEW HISTORY: COUGH TECHNIQUE: Chest, one view. COMPARISON: None. FINDINGS: There are low lung volumes and vascular crowding. No focal consolidation, pleural effusion, or pneumothorax. Pulmonary vasculature is within normal limits. Cardiomediastinal silhouette is normal. IMPRESSION: 1. Expiratory chest without acute cardiopulmonary disease. Electronically authenticated by: NETTEPOWER ZACK Date: 2022-03-18 10:43 Normal [facility] CHEMISTRYOrdered By: SYSTEM SYSTEM on 02-19-2022 Free T4 [Mass/Vol] 0.77 ng/dL Normal 0.58 - 1. 64 ng/dL [facility] TSH Qn 5.62 m[IU]/L High 0.34 - 5.60 mcIU/mL [facility] CHEMISTRYOrdered By: SYSTEM SYSTEM on 12-25-2021 Free T4 index Calc [Mass/Vol] 7.56 ng/dL Normal 5.90 - 13.10 ng/dL [facility] T4 [Mass/Vol] 7.1 ug/dL Normal 4.6 - 9.1 mcg/dL [facility] T4 uptake [Mass/Vol] 42.6 % Normal 32.0 - 48.4 % [facility] - Chemistry and C hemistry - challengeOrdered By: SYSTEM SYSTEM on 12-25-2021 TSH Qn 5.37 m[IU]/L Normal 0.34 - 5.60 mcIU/mL [facility] Vital Signs Date Time Vital Sign Value Performing Clinician Watson patton 02-09-2024 13:48-0400 Body height 177.8 cm MD Lionel Rosales Work Phone: [facility] 02-09-2024 13:48-0400 Body mass index (BMI) [Ratio] 43.6 kg/m2 MD Lionel Rosales Work Phone: [facility] 02-09-2024 13:48-0400 Body weight 137.89 kg MD Lionel Rosales Work Phone: [facility] 02-09-2024 13:48-0400 Diastolic blood pressure 74 mm[Hg] MD Lionel Rosales Work Phone: [facility] 02-09-2024 13:48-0400 Heart rate 105 /min MD Lionel Rosales Work Phone: [facility] 02-09-2024 13:48-0400 SaO2% (BldA) [Mass fraction] 94 % MD Lionel Rosales Work Phone: [facility] 02-09-2024 13:48-0400 Systolic blood pressure 130 mm[Hg] MD Lionel Rosales Work Phone: [facility] Encounters Encounter Date Encounter Type Care Provider Facility Start: 04-26-2024 End: 04-26-2024 Bamboo flowsheet Judson Alisonmor MAINTENANCE CUSTODIAN [facility] Start: 04-26-2024 End: 04-26-2024 Bamboo flowsheet Judson Gillmor MAINTENANCE CUSTODIAN [facility] Start: 04-26-2024 End: 04-26-2024 ambulatory UJDSON ELSIR Not Available Start: 04-12-2024 End: 04-12-2024 Patient encounter procedure MD Lionel Rosales Work Phone: [facility] [place] Work Phone: Start: 04-12-2024 End: 04-12-2024 ambulatory MD Lionel Rosales Work Phone: [facility] Work Phone: Start: 02-22-2024 Registered Recurring MD Lionel Rosales Work Phone: [facility] Start: 02-22-2024 ambulatory Lionel Rosales Facility:[facility] Start: 02-09-2024 End: 02-09-2024 Patient encounter procedure MD Lionel Rosales Work Phone: [facility] Work Phone: Start: 11-10-2023 End: 11-10-2023 Lab Drop off SHELBI MASON [facility] Start: 11-10-2023 End: 11-11-2023 ambulatory SHELBI MASON [place] Start: 08-11-2023 End: 08-11-2023 Lab Drop off SHELBI MASON [facility] Start: 08-11-2023 End: 08-12-2023 ambulatory SHELBI MASON [facility] Start: 02-01-2023 End: 02-02-2023 ambulatory SHELBI MARLON [facility] Start: 10-27-2022 End: 10-27-[address] NONE LISTED REQUEST Facility: Start: 10-25-2022 End: 10-26-2022 ambulatory INES BENJAMIN . Facility: Start: 05-05-2022 End: 05-05-2022 Lab Drop off MEÑO BOWLES [facility] Start: 03-18-2022 End: 03-18-[address] NONE LISTED REQUEST Facility: Start: 02-19-2022 End: 02-19-2022 Lab Drop off FLORENCE ISAAC KAMRYN [facility] Start: 12-25-2021 End: 12-25-2021 Patient encounter procedure FLORENCEMURPHY ISAAC KARRI [facility] Start: 11-05-2021 End: 02-03-2022 Recurring FLORENCE ISAAC KARRI [facility] Procedures Date Procedure Procedure Detail Performing Clinician Start: 04-12-2024 Plain chest X-ray MD Alan Richter Work Phone: None (qualifier value) MARCOS MOON Plan of Treatment Date Care Activity Detail Author Start: 04-26-2024 End: 04-26-2024 Patient encounter procedure 04/26/2024 10:30 AM EDT Office Visit [facility] [address] [place] [id number] Judson Jo, SANDY [address] [place] Arrived [facility] Comment on above: Arrived Immunizations Immunization Date Immunization Notes Care Provider Fa cility 08-20-2020 COVID-19 mRNA-1273 (Moderna) MD Lionel Rosales Work Phone: [facility] 07-23-2020 COVID-19 mRNA-1273 (Moderna) MD Lionel Rosales Work Phone: [facility] Payers Date Payer Category Payer Unknown [id number] 2023 Unknown [id number] 2022 Self-pay 1985 Unknown [id number] 1987 Unknown [id number] 593 1987 Unknown [id number] 593 1987 Unknown [id number] 727 1987 Unknown [id number] 727 1987 Unknown [id number]. 727 1987 Unknown [id number]. 1259 1959 Unknown [id number] 1959 Unknown [id number] Private Health Insurance [facility] [place] [id number] Private Health Insurance [facility] [id number] Private Health Insurance [facility] [id number] Unknown [id number] Unknown [id number] 531 Unknown [id number] 531 Social History Date Type Detail Facility Tobacco [facility] Comment on above: denies. denies. Male [facility] Tobacco smoking status No Smoking Status Entered [facility] Start: 01-06-2018 Tobacco smoking status NDIS Never smoked tobacco (finding) [facility] Start: 1985 Sex Assigned At Male F [facility] Tobacco smoking status [facility] Tobacco smoking consumption unknown [facility] Start: 1985 Sex assigned at Not on file [place] [facility] Evaluation + Plan note 08-11-2023 Note Date & Type Note Facility 08-11-2023 Evaluation + Plan note Diagnostic Tests PendingT3 Total 08/11/23 [facility] Evaluation + Plan note Note Date & Type Note Facility Evaluation + Plan note No data available for this section [facility] Evaluation note Note Date & Type Note Facility Evaluation note Diagnosis Onset Date Excessive daytime sleepiness acute Hypnagogic hallucinations ac claudine Major depression, recurrent acute Medication side effect acute Obstructive sleep apnea acut e Sleep paralysis acute [facility] Work Phone: Hospital Discharge instructions Note Date & Type Note Facility Hospital Discharge instructions No data available for this section [facility] Progress note Note Date & Type Note Facility Progress note No data available for this section [facility] Summary Purpose Family History No Family History Records Found No data available for this section No data available for this section No Family History Records FoundNo Family History Records FoundNo Family History Records Found Advance Directives Advance Directive Response Recorded Date/ Time Advance Directives No May 20, 2017 5:13pm Chief Complaint and Reason for Visit Chief Complaint g47.10 BH J98.8 Reason for Visit Excessive daytime sl eepiness Hypnagogic hallucinations Major depression, recurrent Medication side effect Obstructive sleep apnea Sleep paralysis Additional Source Comments Care Team (unrecognized sect ion and content) Team Status: Active Member Role Status Dates Lionel Rosales MD Primary Care Provider Active Team Status: Inactive Member Role Status Dates Lionel Rosales MD Primary Care Provider Active S tart: February 09, 2024 End: February 09, 2024 Marsha Yo MD Attending Provider Active S tart: February 09, 2024 End: February 09, 2024 Team Status: Active Member Role Status Dates Lionel Rosales MD Primary Care Provider Active S tart: February 22, 2024 Julián Lay MD Attending Provider Active Start: February 22, 2024 Team Status: Inactive Member Role Status Dates Lionel Rosales MD Primary Care Provider Active S tart: April 12, 2024 End: April 12, 2024 Colin Vick DO Attending Provider Active Start : April 12, 2024 End: April 12, 2024 Lenin Henao DO RES Referring Provider Active Start: April 12, 2024 End: April 12, 2024 Police Investigator Relationship Specialty Start Date End Date Hazel Burleson MD [address] [place] [address] Referring Physician Family Medicine 04/18/24 (unrecognized sect ion and content) No Status Records FoundNo Status Records FoundNo Status Records FoundNo Status Records Found INFORMATION SOURCE (unrecogn ized section and content) DATE CREATED AUTHOR 11/01/2022 [facility] DATE CREATED AUTHOR AUTHOR'S ORGANIZ ATION 11/11/2023 [facility] DATE CREATED AUTHOR AUTHOR'S ORGANIZ ATION 04/17/2024 [facility] DATE CREATED AUTHOR AUTHOR'S ORGANIZ ATION 04/28/2024 [facility] Goals (unrecognized section and content) Goals may be documented in a n alternate section FOR RECORDS PERTAINING TO PATIENTS WHO ARE [...] BE BASED ON THE PRIMARY CLINICAL RECORDS. [email or web address] [facility]. provides no warranty or guarantee of the accuracy or completeness of information in this document.
--- NOTE | 2024-05-02 10:18 | XR_ITS ---
[address] [address] Patient Name: SAHRA CHOW MRN: [id number] date: 1985 Sex: M Assigned Patient Location: LAB Current Patient Location: LAB Accession/Order Number: [id number] Exam Date: 05/02/2024 10:12 Report Date: 05/02/2024 16:34 At the request of: SHELBI MASON Procedure: XR chest 2V EXAM: XR chest 2V CLINICAL INDICATION: Bronchitis J40 COMPARISON: None TECHNIQUE: 2 views of chest performed. FINDINGS: Lungs: No convincing focal infiltrates. No pleural effusion or pneumothorax. Heart: Cardiac and mediastinal contours are unremarkable. No overt pulmonary vascular congestion. Osseous structures: No acute abnormalities. XR/XR chest 2V IMPRESSION: No acute cardiopulmonary process. Electronically authenticated by: BELÉN FREGOSO Date: 05/02/2024 16:34
[2024-05-02 11:33] LABS: Alanine Aminotransferase 63 U/L (16-63); Albumin Globulin Ratio 1.1; Albumin Level 3.7 g/dL (3.4-5.0); Alkaline Phosphatase 124 U/L (46-116); Anion Gap 10.9; Aspartate Amino Transferase 30 U/L (15-37); BUN Creatinine Ratio 15.4; Bilirubin Total 0.7 mg/dL (0.2-1.0); Calcium 9.1 mg/dL (8.5-10.1); Chloride 100 mmol/L (98-107); Chol HDL Ratio 3.2; Cholesterol 167 mg/dL (<=200); Estimated GFR (African America >60 (>=60 mL/min/1.73m^2); Estimated GFR (Non-African Ame >60 (>=60 mL/min/1.73m^2); Globulin 3.4 g/dL; Glucose 96 mg/dL (74-106); HDL Cholesterol 53 mg/dL (40-60); Potassium 3.9 mmol/L (3.5-5.1); Sodium 138 mmol/L (136-145); Thyroid Stimulating Hormone 2.233 uIU/mL (0.358-3.740); Total Protein 7.1 g/dL (6.4-8.2); Triglycerides 166 mg/dL (<=150); VLDL CHOLESTEROL 33.2 mg/dL
[2024-05-03 04:08] LABS: Triiodothyronine (T3) 76 ng/dL (71-180)
== END 2024-05-02 09:48 | disposition home or self-care (01) ==
LOC: LAB 09:49
PROVIDERS: PCP Nurse Practitioner Family; Visit Provider Nurse Practitioner Family
DX: E78.2 Mixed hyperlipidemia (principal); J40 Bronchitis, not specified as acute or chronic; G47.10 Hypersomnia, unspecified; G47.30 Sleep apnea, unspecified; E03.9 Hypothyroidism, unspecified
CPT/HCPCS: 36415; 71046; 80053; 80061; 84436; 84443; 84480